=== PATIENT | female | born 1985 | race African-American/Black ===

== ENCOUNTER 2016-09-16 08:00 | Inpatient (IN) | payer MEDICAID, OTHER ==
[~2016-09-16] VITALS: Ht 167.6 cm; Wt 86.0 kg
[2016-09-16] VITALS (9 sets, daily range): BP systolic 124–164; BP diastolic 75–95; PULSE 78–91; RESP 16–18; TEMP 97.9–98.4; O2SAT 98–100
[~2016-09-16 08:00] MED LIST: ASPI325T PO; LEVE500 PO
--- NOTE | 2016-09-16 08:32 | PD ---
HPI Chief Complaint: Seizure Time Seen by Provider: 08:32 Travel History International Travel<30 days: No Contact w/Intl Traveler<30days: No Traveled to known affect area: No History of Present Illness HPI 31-year-old female came to the emergency room with history of seizure. Patient has history of seizure disorder but she had not had her seizure for past one year and has not taken her medication in past 1 year. Her mother is here with her who brought her from home. This morning when she was asleep her boyfriend found her shaking next to him and initially he thought she was dreaming but then realized that she was not responding. Eventually the seizure stopped. He called her mother to let her know about this. No history of tongue bite or urinary incontinence. Currently she is awake and answering questions appropriately but with a stutter. Patient has a heavy stammer which is her baseline after seizures. She is complaining of left upper extremity and lower extremity weakness which usually she has in the past with her seizures. Initially patient was hypertensive in triage but when I went to see her her blood pressure was back to normal. No other symptoms otherwise. Patient is currently not on any medications. [facility] Past Medical History Narrative Medical List of her home medications reviewed from the nursing note. Hx Anticoagulant Therapy: Yes (ASPIRIN) Asthma: Yes (CHILDHOOD) Blood Disorders: No Cancer: No Cardiovascular Problems: Yes Chemotherapy: No Cerebrovascular Accident: Yes (HX OF POSSIBLE CVA/TIA ) Diabetes: No Endocrine: No Gastrointestinal Disorders: No Genitourinary: No Hepatitis: No Hiatal Hernia: No Immune Disorder: No Implanted Vascular Access Dvce: No Musculoskeletal: No Neurologic: Yes (MINISTROKES , SEIZURES, WEAKNESS LEFT SIDED, MEMORY LOSS, MIGRAINES) Psychiatric: No Reproductive: No Respiratory: No Immunizations Current: Yes Migraines: Yes Radiation Therapy: No Seizures: Yes Thyroid Disease: No Tetanus Vaccination: < 5 Years Influenza Vaccination: Yes ?: Not LMP: 08/23/16 : 4 Para: 3 Miscarriage: 1 : 1 Tubal Ligation: Yes Past Surgical History Abdominal Surgery: Yes (APPENDECTOMY) AICD: No Appendectomy: Yes Arteriovenous Shunt: No Body Medical Devices: NONE Cardiac Surgery: No Ear Surgery: No Endocrine Surgery: No Eye Surgery: No Genitourinary Surgery: No Gynecologic Surgery: No Insulin Pump: No Joint Replacement: No Oral Surgery: No Pacemaker: No Thoracic Surgery: No Other Surgery: Yes Social History Alcohol Use: No Tobacco Use: No Substance Use: No Allergies-Medications (Allergen,Severity, Reaction): Coded Allergies: Sulfa (Verified Allergy, Severe, HIVES, 09/16/16) *MDRO Multi-Drug Resistant Organism (Verified Adverse Reaction, Unknown, MRSA PCR Screen negative 10/20/14 and 10/29/14. Cleared, 09/16/16) MRSA MRSA PCR Screen negative 10/20/14 and 10/29/14. Cleared per Infection Control Comments List of her allergies reviewed from the nursing note. Reported Meds & Prescriptions Reported Meds & Active Scripts Active Narrative Medication List of her home medications reviewed from the nursing note. Review of Systems Except as stated in HPI: all other systems reviewed are Neg Physical Exam Narrative GENERAL: Awake, alert, obese, no obvious distress SKIN: Focused skin assessment warm/dry. HEAD: Atraumatic. Normocephalic. EYES: Pupils equal and round. No scleral icterus. No injection or drainage. ENT: No nasal bleeding or discharge. Mucous membranes pink and moist. NECK: Trachea midline. No JVD. CARDIOVASCULAR: Regular rate and rhythm. No murmur appreciated. RESPIRATORY: No accessory muscle use. Clear to auscultation. Breath sounds equal bilaterally. GASTROINTESTINAL: Abdomen soft, non-tender, nondistended. Hepatic and splenic margins not palpable. MUSCULOSKELETAL: No obvious deformities. No clubbing. No cyanosis. No edema. NEUROLOGICAL: Awake and alert. No obvious cranial nerve deficits. Motor strength in left upper and lower extremities 4 out of 5 and right lower and upper extremities 5 out of 5. Sensation is slightly dull on the left upper and lower extremity. Normal speech. PSYCHIATRIC: Appropriate mood and affect; insight and judgment normal. Data Data Last Documented VS Vital Signs Date Time Temp Pulse Resp B/P Pulse Ox O2 Delivery O2 Flow Rate FiO2 09/16/16 10:20 84 16 127/83 98 Room Air 09/16/16 08:12 97.9 Orders Complete Blood Count With Diff (09/16/16 08:37) Basic Metabolic Panel (Bmp) (09/16/16 08:37) Blood Glucose (09/16/16 08:37) Ecg Monitoring (09/16/16 08:37) Iv Access Insert/Monitor (09/16/16 08:37) Oximetry (09/16/16 08:37) Sodium Chloride 0.9% Flush (Ns Flush) (09/16/16 08:45) Levetiracetam Inj (Keppra Inj) (09/16/16 08:45) Magnesium (Mg) (09/16/16 08:41) Eeg Study (09/16/16 ) Admit Order (Ed Use Only) (09/16/16 11:50) Mri Brain W/O Contrast (09/16/16 ) Labs Laboratory Tests Test 09/16/16 08:53 White Blood Count 5.6 TH/MM3 Red Blood Count 4.49 MIL/MM3 Hemoglobin 11.9 GM/DL Hematocrit 35.7 % Mean Corpuscular Volume 79.6 FL Mean Corpuscular Hemoglobin 26.5 PG Mean Corpuscular Hemoglobin 33.4 % Concent Red Cell Distribution Width 16.2 % Platelet Count 344 TH/MM3 Mean Platelet Volume 7.7 FL Neutrophils (%) (Auto) 49.7 % Lymphocytes (%) (Auto) 39.9 % Monocytes (%) (Auto) 7.6 % Eosinophils (%) (Auto) 2.0 % Basophils (%) (Auto) 0.8 % Neutrophils # (Auto) 2.8 TH/MM3 Lymphocytes # (Auto) 2.2 TH/MM3 Monocytes # (Auto) 0.4 TH/MM3 Eosinophils # (Auto) 0.1 TH/MM3 Basophils # (Auto) 0.0 TH/MM3 CBC Comment DIFF FINAL Differential Comment Sodium Level 140 MEQ/L Potassium Level 3.9 MEQ/L Chloride Level 106 MEQ/L Carbon Dioxide Level 27.3 MEQ/L Anion Gap 7 MEQ/L Blood Urea Nitrogen 6 MG/DL Creatinine 0.77 MG/DL Estimat Glomerular Filtration 107 ML/MIN Rate Random Glucose 86 MG/DL Calcium Level 8.8 MG/DL Magnesium Level 2.3 MG/DL Total Creatine Kinase 335 U/L Creatine Kinase MB 1.2 NG/ML Creatine Kinase MB % 0.4 % Human Chorionic Gonadotropin, LESS THAN 1 Quant MIU/ML MDM Medical Decision Making Medical Screen Exam Complete: Yes Emergency Medical Condition: Yes Medical Record Reviewed: Yes Differential Diagnosis Seizure disorder, noncompliance with medications Narrative Course 10:31 AM patient was given IV 1 g of Keppra bolus. Blood test results came back and within normal limits. She walked to the bathroom and came back and there is no neurologic deficit at this point. Her mother wanted the patient to get a CT scan of her head and I explained to her that her last MRI which was done in April 2015 was within normal limit. She needs to get back on her medications and see the neurologist will need to get a repeat EEG. I will give her prescription for her old dose Keppra. I did put a call out for her neurologist Dr. Okeefe and will discuss and let him know about this patient. I have asked her not to drive or swim until she has seen the neurologist and get a clearance from him. 11 AM I discussed the case with Dr. Okeefe who called back. He agreed with the management so far. He would like to see the patient in his office next week. I have let the patient and her mother know about this. 11:40 AM I was told just now by the nurse that patient is unresponsive. I went and saw her. Her eyes were closed and when I called her name she opened her eyes and looked at me and close them again. Vital signs were completely stable. Her mother is upset and thinks she is having another seizure. It did not appear as a seizure to me but I will admit her at this point and order an EEG and an MRI. Awaiting for the residents to call back. Procedures EKG Prior to Arrival: No Diagnosis Primary Impression: Seizure Additional Impressions: Seizure disorder Non-compliant behavior Noncompliance Admitting Information Admitting Physician Requests: Observation Referrals: Darvin Okeefe PhD 1 week Additional Instructions: Please return to the ER if the condition worsens or any other new concerns. You must take the medication as per the prescription direction without missing any dose. Do not drive, swim or operate heavy machinery until you have got a clearance from your neurologist. Please follow-up with the neurologist as soon as possible. Med/Other Pt SpecificInfo: Prescription(s) given Scripts Levetiracetam (Keppra)500 Mg Klr525 Mg PO BID #60 TAB Ref 0 Prov:Paul Todd MD R1 09/18/16 Disposition: 01 DISCHARGE HOME Condition: Stable Amanda Deras MD Sep 16, 2016 08:32
[2016-09-16] MEDS ORDERED: SODIUM CHLORIDE 0.9% FLUSH 10 ML FLUSH IVF PRN (08:45)
[2016-09-16] MEDS ORDERED: levETIRAcetam INJ 1,000 MG in SODIUM CHLORIDE 0.9% INJ 100 ML IV ONE (08:45)
[2016-09-16 09:02] LABS: AUTOMATED NEUTROPHIL # 2.8 TH/MM3 (1.8-7.7); BASOPHIL % 0.8 % (0.0-2.0); EOSINOPHIL # 0.1 TH/MM3 (0-0.4); HEMATOCRIT 35.7 % (35.0-46.0); HEMO FLAGS DIFF FINAL; LYMPH % 39.9 % (9.0-44.0); LYMPHOCYTE # 2.2 TH/MM3 (1.0-4.8); MEAN CELL VOLUME 79.6 FL (80.0-100.0); MEAN CORPUSCULAR HEMOGLOBIN 26.5 PG (27.0-34.0); MEAN CORPUSCULAR HGB CONC 33.4 % (32.0-36.0); MONO % 7.6 % (0.0-8.0); NEUT % 49.7 % (16.0-70.0); PLATELET COUNT 344 TH/MM3 (150-450); RED BLOOD COUNT 4.49 MIL/MM3 (4.00-5.30); RED CELL DISTRIBUTION WIDTH 16.2 % (11.6-17.2); WHITE BLOOD COUNT 5.6 TH/MM3 (4.0-11.0)
[2016-09-16 09:17] LABS: BICARBONATE 27.3 MEQ/L (21.0-32.0); POTASSIUM 3.9 MEQ/L (3.5-5.1)
[2016-09-16] MEDS ORDERED: LEVE500 PO (10:34)
[2016-09-16] MEDS ORDERED: NALOXONE HCL 0.4 MG/ML AMP IV PRN (12:15)
[2016-09-16] MEDS ORDERED: SODIUM CHLORIDE 0.9% FLUSH 10 ML FLUSH IV FLUSH PRN (12:15)
[2016-09-16] MEDS ORDERED: ACETAMINOPHEN 325 MG TAB PO PRN (12:15)
[2016-09-16] MEDS ORDERED: ONDANSETRON HCL 4 MG/2 ML VIAL IVP PRN (12:15)
--- NOTE | 2016-09-16 12:43 | HHI.HP ---
[facility] Service Family Medicine Primary Care Physician No Primary Care Physician Admission Diagnosis seizures Diagnoses: International Travel<30 Days: No Contact w/Intl Traveler<30days: No Known Affected Area: No History of Present Illness Patient is a 31yo male with PMH significant for seizures who presented here today for seizures. History was obtained from both patient and her mother. At 6:30 this morning, her boyfriend was awakened to the patient shaking and being unresponsive. Boyfriend then called the mother who brought her to the ED. History of seizures for the last 2 years that began during her second . Her seizures are typically absence seizures that are preceded by chest pain and result in left-sided weakness. She reports having similar chest pain last night before the onset of her generalized seizure today. Patient has not had a generalized seizure before. Last seizure was one year ago at which time she was taking Keppra. She had discontinued the medication for the last year due to insurance issues. Denies any urinary/fecal incontinence. Mother reports that seizure lasted for a few minutes but was unable to specify the amount of time. Since the initial generalized seizure, patient has been stuttering which is not her baseline. Prior to the visit today, patient has been complaining of generalized fatigue and decreased appetite over the last 3 weeks. Denies any sick contacts or any other symptoms. Prior neurologist was Dr. Okeefe. (Ignacia Sotomayor MD R2) Review of Systems ROS Limitations: Other (postictal) Constitutional: COMPLAINS OF: Change in appetite, DENIES: Fever, Chills Endocrine: DENIES: Abnorml menstrual pattern Eyes: DENIES: Eye pain Ears, nose, mouth, throat: DENIES: Ear Pain, Running Nose Respiratory: DENIES: Cough, Shortness of breath Cardiovascular: DENIES: Chest pain Gastrointestinal: DENIES: Abdominal pain, Constipation, Diarrhea, Nausea, Vomiting Genitourinary: DENIES: Hematuria, Dysuria Musculoskeletal: DENIES: Joint pain Integumentary: DENIES: Rash Neurologic: COMPLAINS OF: Seizures (Ignacia Sotomayor MD R2) Past Family Social History Past Medical History Seizures Past Surgical History Tubal ligation Appendectomy Reported Medications None (Ignacia Sotomayor MD R2) Allergies: Coded Allergies: Sulfa (Verified Allergy, Severe, HIVES, 09/16/16) *MDRO Multi-Drug Resistant Organism (Verified Adverse Reaction, Unknown, MRSA PCR Screen negative 10/20/14 and 10/29/14. Cleared, 09/16/16) MRSA MRSA PCR Screen negative 10/20/14 and 10/29/14. Cleared per Infection Control Family History Mother and father reportedly healthy Social History Lives with boyfriend, uncle, 3 children Tobacco: Denies Alcohol: Socially Illicits: Denies (Ignacia Sotomayor MD R2) Physical Exam Vital Signs Vital Signs Date Time Temp Pulse Resp B/P Pulse Ox O2 Delivery O2 Flow Rate FiO2 09/16/16 10:20 84 16 127/83 98 Room Air 09/16/16 08:30 18 Room Air 09/16/16 08:15 75 16 99 Room Air 09/16/16 08:12 97.9 82 16 164/95 98 Room Air Physical Exam GENERAL: This is a well-nourished, well-developed patient, in no apparent distress. Laying in bed. SKIN: No rashes, ecchymoses or lesions. Cool and dry. HEAD: Atraumatic. Normocephalic. EYES: Pupils equal round and reactive. Extraocular motions intact. No scleral icterus. No injection or drainage. ENT: Nose without bleeding, purulent drainage. No tongue lacerations. Throat without erythema, tonsillar hypertrophy or exudate. Uvula midline. Airway patent. NECK: No lymphadenopathy. Supple, nontender, no meningeal signs. CARDIOVASCULAR: Regular rate and rhythm without murmurs, gallops, or rubs. RESPIRATORY: Clear to auscultation. Breath sounds equal bilaterally. No wheezes , rales, or rhonchi. GASTROINTESTINAL: Abdomen soft, non-tender, nondistended. No hepato-splenomegaly , or palpable masses. No guarding. MUSCULOSKELETAL: Extremities without clubbing, cyanosis, or edema. No calf tenderness. NEUROLOGICAL: Awake and alert. Initially patient was nonverbal and only look at me and her mother but then became verbal answering questions. Speech was stuttered. Reports decreased sensation to touch on left upper and lower face. 4/5 upper and lower extremity. Patellar reflexes absent bilaterally. Pronator drift unremarkable. Laboratory Laboratory Tests Test 09/16/16 08:53 White Blood Count 5.6 Red Blood Count 4.49 Hemoglobin 11.9 Hematocrit 35.7 Mean Corpuscular Volume 79.6 Mean Corpuscular Hemoglobin 26.5 Mean Corpuscular Hemoglobin 33.4 Concent Red Cell Distribution Width 16.2 Platelet Count 344 Mean Platelet Volume 7.7 Neutrophils (%) (Auto) 49.7 Lymphocytes (%) (Auto) 39.9 Monocytes (%) (Auto) 7.6 Eosinophils (%) (Auto) 2.0 Basophils (%) (Auto) 0.8 Neutrophils # (Auto) 2.8 Lymphocytes # (Auto) 2.2 Monocytes # (Auto) 0.4 Eosinophils # (Auto) 0.1 Basophils # (Auto) 0.0 CBC Comment DIFF FINAL Differential Comment Sodium Level 140 Potassium Level 3.9 Chloride Level 106 Carbon Dioxide Level 27.3 Anion Gap 7 Blood Urea Nitrogen 6 Creatinine 0.77 Estimat Glomerular Filtration 107 Rate Random Glucose 86 Calcium Level 8.8 Magnesium Level 2.3 (Ignacia Sotomayor MD R2) Result Diagram: 09/16/16 0853 09/16/16 0853 Assessment and Plan Assessment and Plan 31-year-old female with a history significant for seizures. Admitted for seizure activity. Code Status Full Discussed Condition With Dr. Beltrán (Ignacia Sotomayor MD R2) Attending Attestation Patient seen and examined. Case reviewed and discussed with the resident team. Agree with plan of care as discussed with me and documented in the resident note. saw pt on admission in ED (Suzie Beltrán MD) Problem List: (1) Seizure disorder Status: Acute Plan: Reported generalized seizure activity on the morning of admission. History of prior seizures but has not been taking medications for the last year due to insurance issues. Patient appears to be post ictal. Continues to have very mild left-sided weakness. -CPK, UDS, EKG ordered -EEG: normal awake and drowsy. No evidence for a focal or diffuse abnormality -MRI Negative -neuro checks and seizure precautions -PT consult -Urine drug screen ordered Consulted Neuro: appreciate recommendations Medications: * IV Keppra x1 in ED * Keppra 1000mg PO BID (reported home dose of 1500mg BID) * Ativan for seizure (2) Left-sided weakness Status: Acute Plan: Likely related to seizure activity -Please see plan above (3) Nutrition, metabolism, and development symptoms Status: Acute Plan: Diet: Clears until mental status improves Fluids: D5 half NS at 75 Electrolytes: Unremarkable DVT prophylaxis: SCDs GI prophylaxis: Not indicated (Ignacia Sotomayor MD R2) Ignacia Sotomayor MD R2 Sep 16, 2016 12:43 Suzie Beltrán MD Sep 17, 2016 14:01
[2016-09-16] MEDS: DEXT 5%-NACL 0.45% 1000 ML INJ 1,000 ML IV SCH (13:00)
--- NOTE | 2016-09-16 14:31 | MG ---
cc: LYNDA COLES Lab No: [id number] Date: 09/16/2016 Age: 31 Sex: F A 31-year-old woman, shaking, not responding, left upper and lower extremities, mini strokes, seizure, Keppra. DESCRIPTION The recording shows symmetric 9 Hz, 60 microvolt posterior rhythm. She falls asleep and reaches stage II sleep which is synchronous and symmetric. Photic stimulation was performed without significant posterior driving. Hyperventilation was not performed. No epileptiform or seizure activity is noted. There were no hemisphere asymmetries. IMPRESSION Normal awake and drowsy EEG. No evidence for a focal or diffuse abnormality. MD BEN Otero/DIA /2:06 PM /2:21 PM
--- NOTE | 2016-09-16 14:58 | RADRPT ---
EXAM DATE/TIME: 09/16/2016 13:10 [facility] COMPARISON: MRI BRAIN W/O CONTRAST, September 17, 2014, 15:21. INDICATIONS : Seizures. MEDICAL HISTORY : Seizures. SURGICAL HISTORY : Appendectomy. Tonsillectomy. ENCOUNTER: Initial ACUITY: 1 day PAIN SCORE: 0/10 LOCATION: cranial TECHNIQUE: Multiplanar, multisequence MRI of the brain was performed without contrast. FINDINGS: CEREBRUM: The ventricles are normal for age. No evidence of midline shift, mass lesion, hemorrhage or acute in farction. No extraaxial fluid collections are seen. The pituitary gland and suprasellar cistern are normal in configuration. WHITE MATTER: No significant signal abnormalities are seen in the white matter. POSTERIOR FOSSA: The cerebellum and brainstem are intact. The 4th ventricle is midline. The cerebellopontine angle is unremarkable. The cerebellar tonsils are normal in position. DIFFUSION IMAGING: No focal areas of restricted diffusion are seen. No evidence of acute infarction. EXTRACRANIAL: The visualized portions of the orbits and paranasal sinuses are unremarkable. CONCLUSION: Negative for acute process.. Sam Glynn MD FACR on September 16, 2016 at 14:54 Board Certified Radiologist. This report was verified electronically.
[2016-09-16] MEDS ORDERED: LORazepam 2 MG/ML VIAL IV PRN (15:00)
[2016-09-16] MEDS ORDERED: ENALAPRILAT 1.25 MG/ML VIAL IV PRN (15:15)
[2016-09-16] MEDS ORDERED: FOSPHENYTOIN SODIUM 100 MG PE/2 ML VIAL IV ONE (15:45)
[2016-09-16] MEDS ORDERED: LORazepam 2 MG/ML VIAL IV PUSH ONE (15:45)
[2016-09-16 15:51] LABS: BLOOD GAS BASE EXCESS -0.8 mmol/L (-2-2); BLOOD GAS CARBOXYHEMOGLOBIN 0.8 % (0-4); BLOOD GAS HCO3 23 mmol/L (22-26); BLOOD GAS METHEMOGLOBIN 0.4 % (0-2); BLOOD GAS O2 HGB SATURATION 97 % (90-100); BLOOD GAS PCO2 36 mmHg (38-42); BLOOD GAS PO2 96 mmHG (61-120); BLOOD GAS TOTAL HGB 11.7 G/DL (12.0-16.0); TEMP CORR TO 98.6
[2016-09-16 15:52] LABS: CRITICAL VALUE NO; DRAW SITE RT RADIAL; NUMBER OF ARTERIAL PUNCTURES 1; OXYGEN DEVICE ROOM AIR; STAT YES; ULNAR PULSE PRESENT
--- NOTE | 2016-09-16 16:18 | HHI.FPPN ---
Addendum to progress note ADDENDUM Reason for addendum: Additonal documentation Additional information SUBJECTIVE Received page regarding unresponsiveness when patient arrived to [facility]. Mother reports that after my initial evaluation, patient became somnolent during the time of her EEG and MRI. There was reported eye twitching. When I arrived at bedside, patient was laying in bed with eyes closed but with visible eye movement back and forth. OBJECTIVE VS reassuring. O2 Sat 99% General: Laying in bed with eyes closed. Eyes movement back and forth. Non responsive to sternal rub Cardiac: Regular rate and rhythm without obvious murmurs, gallops, or rubs. Neuro: 1+ patellar reflexes bilaterally that was not present on initial exam A/P 31yo female with history of seizure who was admitted for generalized seizure. Appears to have a recurrent episode that has been persistent since initial evaluation. Received 1G of Keppra in ED prior to recent onset of seizure activity. EEG and MRI obtained today were normal. -Spoke with Dr. Covington, Neuro, who recommended stat repeat EEG, Fosphenytoin 15mg/kg, and Ativan 0.5mg x1. If patient is still having seizures, will contact Dr. Covington again. -ABG obtained and was unremarkable with pH 7.423, pCO2 35.8, pO2 95.7 on room air -Bedside glucose WNL -If symptoms continue, may require intubation -Consulted Cheese Maker, Dr. Armstrong aware -[place] [facility] [place]NPO sdw Dr. Beltrán ADDENDUM Re-evaluated patient at 1800. Patient is more awake and able to follow commands by moving hands and feet on command. VS reassuring and in sinus rhythm during episodes. Etiology unclear but may be due to pseudoseizures -Did require Ativan 2mg due to reoccurrence of seizure like activity. -B-hcg pending -Notified Dr. Covington of clinical status Ignacia Sotomayor MD R2 Sep 16, 2016 16:18
[2016-09-16] MEDS ORDERED: FOSPHENYTOIN INJ 1,000 MGPE in SODIUM CHLORIDE 0.9% INJ 50 ML IV ONE (17:00)
[2016-09-16] MEDS ORDERED: CHLORHEXIDINE GLUCONATE 2 % 1 PACK (2 CLOTHS)(extra cloths) TOPICAL PRN (17:00)
[2016-09-16 18:24] LABS: BETA HCG QUANT LESS THAN 1 MIU/ML (0-5)
[2016-09-16 18:42] LABS: CKMB 1.2 NG/ML (0.5-3.6)
--- NOTE | 2016-09-16 19:24 | PD.CONS ---
[facility] Service Critical Care Medicine Consult Requested By Family Medicine Service Reason for Consult altered mental status Primary Care Physician No Primary Care Physician History of Present Illness I was called by the family consumer science fcs teacher to evaluate a patient after rapid response was called for altered mental status. Unfortunately, the patient is altered and unable to provide a history. Per the report given to me by the family practice resident, combined with brief chart review, this is a 31-year- old female with a past medical history of seizures, although she apparently does not take any home medications. She presented to the emergency department here yesterday after experiencing shaking and being unresponsive. She does have a history of seizures that began proximally 2 years ago during her second . 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 She has never had a generalized tonic clonic seizure. Her last seizure was greater than 1 year ago. At that time she is taking Keppra. She since discontinued this due to insurance. She was admitted the hospital worked up for seizures, including an EEG. Today while they were connecting the EEG, she had another generalized tonic-clonic appearing seizure with shaking. She did not have loss of bowel or bladder control. During my evaluation as she was rolling into the ICU, she appeared to be protecting her airway. Critical care medicine is consulted to evaluate and manage her altered mental status and evaluate her airway to ensure that it is protected. Review of Systems ROS Limitations: Clinical Condition, Altered Mental Status Past Family Social History Allergies: Coded Allergies: Sulfa (Verified Allergy, Severe, HIVES, 09/16/16) *MDRO Multi-Drug Resistant Organism (Verified Adverse Reaction, Unknown, MRSA PCR Screen negative 10/20/14 and 10/29/14. Cleared, 09/16/16) MRSA MRSA PCR Screen negative 10/20/14 and 10/29/14. Cleared per Infection Control Past Medical History Patient is unable to provide a past medical history due to her altered mental status. Per chart review, her past medical history is positive for seizures. Past Surgical History Due to her altered mental status, the patient is able to provide a past surgical history. Per chart review, past surgical history positive for tubal ligation and appendectomy. Reported Medications The patient's altered mental status prevents her from giving a full home med list. Per chart review, the patient takes no medications at home Active Ordered Medications See MAR Family History Patient is unable to provide a family history given her altered mental status. Per chart review, her parents are reportedly healthy. Social History The patient is altered and unable to provide a social history. Per chart review , she lives with her boyfriend, uncle, 3 children. She does not smoke, drinks socially. Denies drugs of abuse. Physical Exam Vital Signs Vital Signs Date Time Temp Pulse Resp B/P Pulse Ox O2 Delivery O2 Flow Rate FiO2 09/16/16 18:00 88 09/16/16 15:37 98.4 78 18 126/91 99 09/16/16 14:00 78 16 136/83 100 Room Air 09/16/16 10:20 84 16 127/83 98 Room Air 09/16/16 08:30 18 Room Air 09/16/16 08:15 75 16 99 Room Air 09/16/16 08:12 97.9 82 16 164/95 98 Room Air Physical Exam When I evaluated the patient, she was somnolent but arousable. RASS -2. She follows commands. She quickly falls back asleep. She has a good cough and gag. She has clear lungs. Regular rate and rhythm without appreciable murmurs. No peripheral edema. No shaking motions that I have seen on my exam. Laboratory Laboratory Tests Test 09/16/16 09/16/16 08:53 15:47 White Blood Count 5.6 Red Blood Count 4.49 Hemoglobin 11.9 Hematocrit 35.7 Mean Corpuscular Volume 79.6 Mean Corpuscular Hemoglobin 26.5 Mean Corpuscular Hemoglobin 33.4 Concent Red Cell Distribution Width 16.2 Platelet Count 344 Mean Platelet Volume 7.7 Neutrophils (%) (Auto) 49.7 Lymphocytes (%) (Auto) 39.9 Monocytes (%) (Auto) 7.6 Eosinophils (%) (Auto) 2.0 Basophils (%) (Auto) 0.8 Neutrophils # (Auto) 2.8 Lymphocytes # (Auto) 2.2 Monocytes # (Auto) 0.4 Eosinophils # (Auto) 0.1 Basophils # (Auto) 0.0 CBC Comment DIFF FINAL Differential Comment Sodium Level 140 Potassium Level 3.9 Chloride Level 106 Carbon Dioxide Level 27.3 Anion Gap 7 Blood Urea Nitrogen 6 Creatinine 0.77 Estimat Glomerular Filtration 107 Rate Random Glucose 86 Calcium Level 8.8 Magnesium Level 2.3 Total Creatine Kinase 335 Creatine Kinase MB 1.2 Creatine Kinase MB % 0.4 Human Chorionic Gonadotropin, LESS THAN 1 Quant Blood Gas Puncture Site RT RADIAL Blood Gas Patient Temperature 98.6 Blood Gas HCO3 23 Blood Gas Base Excess -0.8 Blood Gas Oxygen Saturation 97 Arterial Blood pH 7.42 Arterial Blood Partial 36 Pressure CO2 Arterial Blood Partial 96 Pressure O2 Arterial Blood Oxygen Content 16.0 Arterial Blood 0.8 Carboxyhemoglobin Arterial Blood Methemoglobin 0.4 Blood Gas Hemoglobin 11.7 Oxygen Delivery Device ROOM AIR Result Diagram: 09/16/16 0853 09/16/16 0853 Imaging Last Impressions Brain MRI 09/16/16 0000 Signed Impressions: Service Date/Time: Friday, September 16, 2016 13:10 - CONCLUSION: Negative for acute process.. Sam Glynn MD FACR Assessment and Plan Assessment and Plan Assessment: This is a 31-year-old female with history of reported seizures who presents after generalized shaking movements and concern for seizure. I also discussed her care with the sterile preparation technician, and preliminarily there does not appear to be any seizure activity associated with the shaking episodes. I think pseudoseizures needs to be highly in the differential diagnosis. For now, she appears to be controlling her airway. I agree with monitoring her in ICU setting overnight. We will continue to monitor her airway and for any signs of worsening seizure. Active Problems: history of seizures seizure like activity metabolic encephalopathy Recommendations: -- avoid long-acting sedating medications unless specifically targeted to treat seizures -- anti-epileptics per neurology -- npo until neuro status improves -- ativan for seizure like activity -- will closely monitor her neuro status Disposition: If she remains stable from a neurologic standpoint, I think it's safe for her to leave the ICU tomorrow. If she continues to improve, critical care medicine will sign off in the morning. Code Status Full Code Discussed Condition With Family Medicine team Kieran Armstrong MD Sep 16, 2016 19:24
[2016-09-16] MEDS: SODIUM CHLORIDE 0.9% FLUSH 10 ML FLUSH IV FLUSH SCH (20:01)
[2016-09-16] MEDS ORDERED: levETIRAcetam 500 MG TAB PO SCH (21:00)
[2016-09-16 21:40] LABS: CREATINE KINASE 230 U/L (26-192); FREE T4 0.85 NG/DL (0.76-1.46)
[2016-09-16 21:53] LABS: CKMB 0.6 NG/ML (0.5-3.6)
--- NOTE | 2016-09-16 22:10 | MB ---
cc: LYNDA COLES DATE OF CONSULTATION 09/16/16 A 31-year-old right-handed girl without significant past medical history except she was having seizures, maybe staring off when she was younger and then about two years ago seemed to have slurred speech. She had started was put on Keppra, did fine and then last episode was about a year ago and then maybe six months ago she stopped her Keppra due to insurance or job change and then this morning I was told by her uncle that she had some tremors of both of her hands and could not speak. She presented to the emergency room after her kids went off to school. Seen in the ER and noted in the ER notes when she was asleep her boyfriend found her shaking next to him. Initially thought she was dreaming and then not responding, eventually the seizure stopped. There was a heavy stammer, which was her baseline according to the emergency room. Complaining of left upper extremity and lower extremity weakness which she usually has with her seizures, initially hypertensive and blood pressure back to normal. She was not on any medications, usually takes Keppra 1500 b.i.d. but not currently taking it. ALLERGIES SULFA MRSA She was given a gram Keppra in bolus. Blood tests were negative. She walked to the bathroom and came back. No neurological deficit. Then the patient became unresponsive. Her eyes were closed. When they called her name, she opened her eyes, closed them again. She was subsequently admitted to the hospital. She has had several episodes here, some eye twitching. She was given some Ativan in the emergency room. She was given a load of Dilantin, recurrent episodes. She had visible eye movement back and forth. She had two EEGs done today. The first was normal. The second one was also normal. The second one had some head shaking and right arm shaking and these showed normal EEG activity during these episodes. There is a note from Dr. Okeefe from July 2014. She was two months at that time. She had some stuttering of her speech. It was thought that she had some anxiety and she had more stuttering and tingling in the left hand and the left arm, had a headache. Left group was 4/5, approximately left lower extremity 4/5. Doctor saw her and he suspect this might be psychogenic component. He considered a psychiatric evaluation. MRI of the brain, MRA was normal, MR venogram was normal. She had an EEG done in September of 2014 that was normal. She had another EEG done on September 04, 2014 thought to have some phase reversing done by Dr. Thomson read by Dr. Thomson. REVIEW OF SYSTEMS According to her uncle, no history of hypertension, diabetes, hypercholesterolemia, MA, CABG, cardiac arrhythmia, stent angioplasty, atrial fibrillation, Coumadin, renal, hepatic or pulmonary disease, thyroid disease lupus, ulcer, cancer or stroke. SOCIAL HISTORY Not a smoker or a drinker, lives with her uncle, has three children, works at [employer]. FAMILY HISTORY Negative for cancer seizure, stroke. MEDICATIONS Current meds. She got the above medications. Today she got 2.5 mg of Ativan, 2 mg right before I came. She is sleeping now. She was also put on an aspirin here. She got a Percocet in addition. PHYSICAL EXAMINATION VITAL SIGNS: Afebrile, 78, 18 126/91. NECK: There were no carotid bruits. HEART: Regular rhythm. I did not detect a murmur. She is mildly obese. Pupils are equal, disks are sharp. She awakens. She does count fingers for me. She sticks her tongue out for me and says hello. She is very sleepy after the Ativan. She had normal strength in upper and lower extremities bilaterally. Toes are downgoing bilaterally. DTRs are 1+ symmetric. Pinprick was intact. She follows commands well and then falls back to sleep. LABORATORY DATA CBC is normal. She had a hypercoag screen done back in 2014 that was normal. She has had a UTI here in the past but not checked currently. Basic metabolic profile - magnesium normal. CPK 335, troponin negative in the past. LDL cholesterol normal in the past. TSH normal in the past. HCT negative, lupus anticoagulant not detected. Factor Five was negative. Protein TOOLS AND [employer]S ATTENDANT normal. She had an MRI of her brain done today was normal without contrast. EEG is normal as noted. IMAGING STUDIES Chest x-ray normal. Review of the MRI film. I would say looking at the films on the flare on the left one cut on the left sylvian fissure there might be a little bit of hyperintensity on both sides of that, although only on one slice not on the other slice. It is probably a normal image. This was similarly seen on the scan in 2015 so it is normal for her. that scan was done in 2015 with contrast and was normal. IMPRESSION I think likely pseudoseizures certainly on the basis of this EEG. I would hold off on giving her any sedatives at this point. We could keep her on the Keppra for now. I think she will probably sleep well tonight after the Ativan. I will be following up with you in the hospital. We will just check a few other labs on her that have not been checked here. MD BEN Otero/ /6:49 PM /9:39 PM
--- NOTE | 2016-09-16 22:47 | MG ---
cc: LYNDA COLES M.D. Lab No: [id number] Date: 09/16/16 Age: 31 Sex: F Race: This is a repeat EEG. HISTORY A 31-year-old woman. Appears unresponsive at the start of the recording. Given some Ativan one hour before the recording. Was found shaking, unresponsive. MEDICATIONS Dilantin, Ativan, Keppra. DESCRIPTION The recording shows some diffuse alpha and beta rhythms. She has at epoch 86 some left arm movement, some shaking of her head, turning head to right. Moves just correlate with movement artifact and no epileptiform or seizure activity is noted with that. She then appeared to fall asleep and go into stage 2 sleep and in fact does have stage 2 sleep quite a bit towards the end of the recording including during photic stimulation. IMPRESSION A normal awake and stage 2 sleep EEG including during an episode of arm and head shaking. No evidence for a focal or diffuse abnormality. She also had some eye twitching episodes which did not correlate with any seizure activity. These episodes appear to be likely pseudoseizures. MD BEN Otero/BJAnam /6:28 PM /10:35 PM
[2016-09-17] VITALS (17 sets, daily range): BP systolic 104–147; BP diastolic 57–81; PULSE 70–94; RESP 14–20; TEMP 97.5–98.6; O2SAT 98–99
[2016-09-17] MEDS: CHLORHEXIDINE GLUCONATE 2 % 1 PACK (2 CLOTHS)(taper/protocol) TOPICAL SCH (04:00)
[2016-09-17] MEDS: DEXT 5%-NACL 0.45% 1000 ML INJ 1,000 ML IV SCH ×3 (04:26→20:28)
[2016-09-17 05:13] LABS: AUTOMATED NEUTROPHIL # 2.7 TH/MM3 (1.8-7.7); BASOPHIL # 0.1 TH/MM3 (0-0.2); EOSINOPHIL # 0.1 TH/MM3 (0-0.4); EOSINOPHIL % 2.2 % (0.0-4.0); HEMO FLAGS DIFF FINAL; LYMPH % 44.9 % (9.0-44.0); LYMPHOCYTE # 2.9 TH/MM3 (1.0-4.8); MEAN CELL VOLUME 80.8 FL (80.0-100.0); MEAN CORPUSCULAR HEMOGLOBIN 26.6 PG (27.0-34.0); MEAN CORPUSCULAR HGB CONC 32.9 % (32.0-36.0); MONO % 10.8 % (0.0-8.0); NEUT % 41.1 % (16.0-70.0); PLATELET COUNT 290 TH/MM3 (150-450); POTASSIUM 3.9 MEQ/L (3.5-5.1); RED BLOOD COUNT 4.21 MIL/MM3 (4.00-5.30); RED CELL DISTRIBUTION WIDTH 16.1 % (11.6-17.2); WHITE BLOOD COUNT 6.5 TH/MM3 (4.0-11.0)
[2016-09-17 05:33] LABS: CKMB 0.5 NG/ML (0.5-3.6)
--- NOTE | 2016-09-17 07:42 | HHI.CCPN ---
Subjective Remarks/Hospital Course Hospital Course: I was called by the family medicine chair to evaluate a patient after rapid response was called for altered mental status. Unfortunately, the patient is altered and unable to provide a history. Per the report given to me by the family practice resident, combined with brief chart review, this is a 31-year- old female with a past medical history of seizures, although she apparently does not take any home medications. She presented to the emergency department here yesterday after experiencing shaking and being unresponsive. She does have a history of seizures that began proximally 2 years ago during her second . 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 She has never had a generalized tonic clonic seizure. Her last seizure was greater than 1 year ago. At that time she is taking Keppra. She since discontinued this due to insurance. She was admitted the hospital worked up for seizures, including an EEG. Today while they were connecting the EEG, she had another generalized tonic-clonic appearing seizure with shaking. She did not have loss of bowel or bladder control. During my evaluation as she was rolling into the ICU, she appeared to be protecting her airway. Critical care medicine is consulted to evaluate and manage her altered mental status and evaluate her airway to ensure that it is protected. Subjective: 09/17: EEG negative for seizures. per Dr. Covington, likely pseudoseizures, and I agree with his assessment. this morning she had another episode with shaking and tachycardia and eye fluttering and hyperventilating which resolved after deep nailbed pressure instantly. otherwise she has remained hemodynamically stable. Objective Vital Signs Date Time Temp Pulse Resp B/P Pulse Ox O2 Delivery O2 Flow Rate FiO2 09/17/16 06:00 82 09/17/16 04:15 98.3 20 116/78 98 09/16/16 14:00 Room Air Intake and Output 09/16/16 09/16/16 09/17/16 08:00 16:00 00:00 Intake Total 400 ml Balance 400 ml Result Diagram: 09/17/16 0403 09/17/16 0403 Other Results Laboratory Tests Test 09/16/16 15:47 Blood Gas Puncture Site RT RADIAL Blood Gas Patient Temperature 98.6 Blood Gas HCO3 23 mmol/L (22-26) Blood Gas Base Excess -0.8 mmol/L (-2-2) Blood Gas Oxygen Saturation 97 % (90-100) Arterial Blood pH 7.42 (7.380-7.420) Arterial Blood Partial 36 mmHg (38-42) Pressure CO2 Arterial Blood Partial 96 mmHG Pressure O2 (61-120) Arterial Blood Oxygen Content 16.0 Vol % (12.0-20.0) Arterial Blood 0.8 % (0-4) Carboxyhemoglobin Arterial Blood Methemoglobin 0.4 % (0-2) Blood Gas Hemoglobin 11.7 G/DL (12.0-16.0) Oxygen Delivery Device ROOM AIR Imaging Last Impressions Brain MRI 09/16/16 0000 Signed Impressions: Service Date/Time: Friday, September 16, 2016 13:10 - CONCLUSION: Negative for acute process.. Sam Glynn MD FACR Objective Remarks gen: young female, lying in bed, no acute distress. heent: nc. at. perrl. mmm. neck: no jvd. trachea midline. chest: cta. cv: normal rate, regular rhythm. sinus by tele. abd: soft, nt. nd. no guarding. extr: no peripheral edema. distal pulses 2+ neuro: awake, alert, fc. A/P Assessment and Plan Assessment: This is a 31-year-old female with history of reported seizures who presents after generalized shaking movements and concern for seizure, EEG negative and likely pseudoseizures. I think she is safe to be transferred to the floor today. I agree with Dr. covington that we should hold off on all sedatives at this point. continue keppra. 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 Recommendations: -- stop ativan -- continue Keppra -- avoid long-acting sedating meds -- advance diet as tolerated. -- stable for transfer to floor. [facility] will sign off. please re-consult as needed. Kieran Armstrong MD Sep 17, 2016 07:42
[2016-09-17] MEDS: SODIUM CHLORIDE 0.9% FLUSH 10 ML FLUSH IV FLUSH SCH ×2 (09:24→20:28)
--- NOTE | 2016-09-17 09:32 | HHI.HP ---
[facility] Service Family Medicine Primary Care Physician No Primary Care Physician Admission Diagnosis seizures Diagnoses: (1) Seizure disorder Diagnosis: Principal (2) Left-sided weakness Diagnosis: Principal (3) Nutrition, metabolism, and development symptoms Diagnosis: Principal International Travel<30 Days: No Contact w/Intl Traveler<30days: No Known Affected Area: No History of Present Illness Jessica Ahmadi is a 31yo male with PMH significant for seizures who presented to the hospital for seizures. History was obtained from both patient and her mother initially. At 6:30 the morning of admission, her boyfriend was awakened to the patient shaking especially of her arms bilaterally in a prone position and being unresponsive. Boyfriend then called the mother who brought her to the ED. History of seizures for the last 2 years that began during her second . Her seizures are typically absence seizures that are preceded by chest pain and result in left-sided weakness and some stuttering speech after seizures. She reports having similar chest pain before the onset of her generalized seizure today. Patient has not had a generalized seizure before. Last seizure was one year ago at which time she was taking Keppra. She had discontinued the medication for the last year due to insurance issues. Denies any urinary/fecal incontinence. Mother reports that seizure lasted for a few minutes but was unable to specify the amount of time. Since the initial generalized seizure, patient has been stuttering which is not her baseline but she would have time after her prior seizures. Prior to the visit today, patient has been complaining of generalized fatigue and decreased appetite over the last 3 weeks. Denies any sick contacts or any other symptoms. Prior neurologist was Dr. Okeefe. She was in the ED and was not having any tonic clonic activity but started to become generally unresponsive to speech, sternal rub, etc. and had a nearly constant "eye fluttering" where her eyelids were obviously showing eye movements but her eyes were not opening. She had an initial EEG that was normal as well as a second EEG while she was exhibiting seizure-like activity that both did not show seizures. She was given multiple doses of ativan which did not stop any activity but did appear to be sedating. She had an episode of altered breathing and activity this am that quickly stopped with nail rub. It was explained to her parents that she appeared to be having pseudoseizures and that all her labs are very reassuring as well as her other studies. Her mother was very concerned that she could have bilateral carotid blockages but it was explained that this would show up on her MRI and other tests if she had no blood flow to a good portion of her brain. Review of Systems ROS Limitations: Clinical Condition (ROS not able to be obtained by pt by me so relied on Dr Shah's) Other ROS Limitations: Other (postictal) Constitutional: COMPLAINS OF: Change in appetite, DENIES: Fever, Chills Endocrine: DENIES: Abnorml menstrual pattern Eyes: DENIES: Eye pain Ears, nose, mouth, throat: DENIES: Ear Pain, Running Nose Respiratory: DENIES: Cough, Shortness of breath Cardiovascular: DENIES: Chest pain Gastrointestinal: DENIES: Abdominal pain, Constipation, Diarrhea, Nausea, Vomiting Genitourinary: DENIES: Hematuria, Dysuria Musculoskeletal: DENIES: Joint pain Integumentary: DENIES: Rash Neurologic: COMPLAINS OF: Seizures Past Family Social History Past Medical History Seizures Past Surgical History Tubal ligation Appendectomy Allergies: Coded Allergies: Sulfa (Verified Allergy, Severe, HIVES, 09/16/16) *MDRO Multi-Drug Resistant Organism (Verified Adverse Reaction, Unknown, MRSA PCR Screen negative 10/20/14 and 10/29/14. Cleared, 09/16/16) MRSA MRSA PCR Screen negative 10/20/14 and 10/29/14. Cleared per Infection Control Family History Mother and father visiting pt in hospital healthy Social History Lives with boyfriend, uncle, 3 children Tobacco: Denies Alcohol: Socially Illicits: Denies Physical Exam Vital Signs Vital Signs Date Time Temp Pulse Resp B/P Pulse Ox O2 Delivery O2 Flow Rate FiO2 09/17/16 06:00 82 09/17/16 04:15 98.3 73 20 116/78 98 09/17/16 04:00 73 09/17/16 02:00 79 09/17/16 00:15 97.5 94 20 147/81 98 09/17/16 00:00 94 09/16/16 22:00 81 09/16/16 20:15 98.1 18 124/75 09/16/16 20:00 91 09/16/16 18:00 88 09/16/16 16:15 98.1 18 133/88 09/16/16 15:37 98.4 78 18 126/91 99 09/16/16 14:00 78 16 136/83 100 Room Air 09/16/16 10:20 84 16 127/83 98 Room Air Physical Exam GENERAL: This is a well-nourished, well-developed patient, in no apparent distress. Laying in bed with eyelid movement but not answering questions SKIN: No rashes, ecchymoses or lesions. Cool and dry. HEAD: Atraumatic. Normocephalic. EYES: Pupils equal round and reactive. Extraocular motions intact. No scleral icterus. No injection or drainage. When eyelids lifted her eyes roll to the side and she does not make eye contact ENT: Nose without bleeding, purulent drainage. No tongue lacerations. . Airway patent. NECK: No lymphadenopathy. Supple, nontender, no meningeal signs. CARDIOVASCULAR: Regular rate and rhythm without murmurs, gallops, or rubs. RESPIRATORY: Clear to auscultation. Breath sounds equal bilaterally. No wheezes , rales, or rhonchi. GASTROINTESTINAL: Abdomen soft, non-tender, nondistended. No hepato-splenomegaly , or palpable masses. No guarding. MUSCULOSKELETAL: Extremities without clubbing, cyanosis, or edema. No calf tenderness. NEUROLOGICAL: Awake and alert. Initially patient was nonverbal when Dr Shah was interviewing her but then became verbal answering questions for her. Speech was stuttered. Reports decreased sensation to touch on left upper and lower face. 4/5 upper and lower extremity. Patellar reflexes absent bilaterally. Pronator drift unremarkable. When I have seen her on multiple occasions she did not open her eyes spontaneously nor answer questions Laboratory Laboratory Tests Test 09/16/16 09/16/16 09/17/16 15:47 20:42 04:03 Blood Gas Puncture Site RT RADIAL Blood Gas Patient Temperature 98.6 Blood Gas HCO3 23 Blood Gas Base Excess -0.8 Blood Gas Oxygen Saturation 97 Arterial Blood pH 7.42 Arterial Blood Partial 36 Pressure CO2 Arterial Blood Partial 96 Pressure O2 Arterial Blood Oxygen Content 16.0 Arterial Blood 0.8 Carboxyhemoglobin Arterial Blood Methemoglobin 0.4 Blood Gas Hemoglobin 11.7 Oxygen Delivery Device ROOM AIR Erythrocyte Sedimentation Rate 18 Total Creatine Kinase 230 193 Creatine Kinase MB 0.6 0.5 Creatine Kinase MB % 0.3 0.3 Troponin I LESS THAN 0.02 Vitamin B12 Level 414 Free Thyroxine 0.85 Thyroid Stimulating Hormone 3.610 3rd Gen White Blood Count 6.5 Red Blood Count 4.21 Hemoglobin 11.2 Hematocrit 34.0 Mean Corpuscular Volume 80.8 Mean Corpuscular Hemoglobin 26.6 Mean Corpuscular Hemoglobin 32.9 Concent Red Cell Distribution Width 16.1 Platelet Count 290 Mean Platelet Volume 8.1 Neutrophils (%) (Auto) 41.1 Lymphocytes (%) (Auto) 44.9 Monocytes (%) (Auto) 10.8 Eosinophils (%) (Auto) 2.2 Basophils (%) (Auto) 1.0 Neutrophils # (Auto) 2.7 Lymphocytes # (Auto) 2.9 Monocytes # (Auto) 0.7 Eosinophils # (Auto) 0.1 Basophils # (Auto) 0.1 CBC Comment DIFF FINAL Differential Comment Sodium Level 140 Potassium Level 3.9 Chloride Level 109 Carbon Dioxide Level 25.0 Anion Gap 6 Blood Urea Nitrogen 5 Creatinine 0.73 Estimat Glomerular Filtration 114 Rate Random Glucose 87 Calcium Level 8.3 Result Diagram: 09/17/1640209/17/16402 Assessment and Plan Assessment and Plan 31-year-old female with a history significant for seizures. Admitted for seizure activity but now suspected of having pseudoseizures. Problem List: (1) Pseudoseizure Status: Acute Plan: pt had normal EEG at the same time as she was exhibiting activity that was seizure-like. She also has second normal EEG. If there was uncertainty, pts can have video EEG at [facility] in [place] but if the diagnosis is sure, pts do not need this. she will be watched and all her lab tests, O2 sats and ABG are all reassuring. Can hold sedating meds and consider evaluation by Psychiatry if warranted though she likely would not speak to them today. Appreciate help of [employer] and Neurology. (2) Seizure disorder Status: Acute Plan: Reported generalized seizure activity on the morning of admission. History of prior seizures but has not been taking medications for the last year due to insurance issues. Patient appeared to be post ictal. Continued to have very mild left-sided weakness. -CPK, UDS, EKG done -EEG: normal awake and drowsy. No evidence for a focal or diffuse abnormality as was repeat EEG -MRI Negative -neuro checks and seizure precautions -PT consult -Urine drug screen ordered Consulted Neuro: appreciate recommendations Medications: * IV Keppra x1 in ED * Keppra 1000mg PO BID (reported home dose of 1500mg BID) can give iv if she does not take po * Ativan for seizure initially but holding now as it is sedating (3) Nutrition, metabolism, and development symptoms Status: Acute Plan: Diet: Clears until mental status improves Fluids: D5 half NS at 75 Electrolytes: Unremarkable DVT prophylaxis: SCDs GI prophylaxis: Not indicated Suzie Beltrán MD Sep 17, 2016 09:32
[2016-09-17] MEDS: levETIRAcetam 1000 MG INJ 100 ML IV SCH ×2 (11:12→20:27)
[2016-09-17 13:53] LABS: BLOOD GAS BASE EXCESS -1.1 mmol/L (-2-2); BLOOD GAS HCO3 23 mmol/L (22-26); BLOOD GAS METHEMOGLOBIN 0.9 % (0-2); BLOOD GAS O2 HGB SATURATION 95 % (90-100); BLOOD GAS OXYGEN CONTENT 16.1 Vol % (12.0-20.0); BLOOD GAS PCO2 38 mmHg (38-42); BLOOD GAS PO2 91 mmHg (61-120); CRITICAL VALUE NO; DRAW SITE LT RADIAL; FIO2 21 %; NUMBER OF ARTERIAL PUNCTURES 1; STAT YES; TEMP CORR TO 98.6; ULNAR PULSE PRESENT
[2016-09-17] MEDS ORDERED: ACYCLOVIR IV SCH (14:15)
[2016-09-17] MEDS ORDERED: SODIUM CHLORIDE 0.9% IV SCH (14:15)
[2016-09-17] MEDS ORDERED: Vancomycin Consult Pharmacy 1 EA OTHER SCH (14:15)
--- NOTE | 2016-09-17 14:22 | HHI.FPPN ---
Addendum to progress note ADDENDUM Reason for addendum: Additonal documentation Additional information S: Resident responded to [facility]: Patient was transferred from [facility] to floor; at ~1200 patient was seen by nursing staff being lethargic and not responding to sternal rub. [facility] was called due to concerns regarding patient's mentals status/ GCS. Patient reportedly with stable vital signs at time of assessment by nursing staff. On arrival, discussed with patient's family and nursing staff, patient had not responded to questioning and concern was present for recent seizure and post- ictal state. Patient's mother supplements that this current episode has been similar to ones she experienced over the past several days. O: Afebrile HR 82, RR 18, BP 114/71, O2 sat 99 CV: Regular rate and rhythm Respiratory rate: Normal Neuro: Not responsive to questioning. No perceived response to sternal rub. Pupils equal and reactive A/P: Altered mental status/low GCS/seizure history Impression: Per EMR, initial impression by neurology, primary team, and parking supervisor that episodes more likely pseudoseizures than organic in etiology as EEGs and initial imaging negative. However, patient's exam still concerning for possible organic disease, and I had difficulty eliciting pain response Discussed with Dr. Covington: We'll obtain stat brain vascular imaging, repeat stat EEG, obtain LP, and start empiric antibiotics for bacterial meningitis and HSV at this time until Dr. Covington able to re-evaluate Seen and discussed with Dr. Alvarado; discussed with Dr. Beltrán Remarks Code blue called while in CT department; patient was witnessed having shaking episode suggestive of seizure. On arrival, patient with stable vital signs and not responsive to command or pain suggestive of possible post-ictal state. ( Update 1600) Head CT and CT A head/neck subsequently resulted: negative for suspicion for vascular etiology Discussed with Dr. Covington who had been able to evaluate patient: reassuring at this time that patient does not likely have CV disease or acute infectious cerebral disease; pseudoseizures suspected. Empiric antibiotics stopped. Patient will remain in [facility] for monitoring Harley Cochran MD R2 Sep 17, 2016 14:22
[2016-09-17] MEDS ORDERED: IOHEXOL 350 MG/ML 10 ML VIAL (for RAD DIAG) IV ONE (14:38)
--- NOTE | 2016-09-17 14:38 | RADRPT ---
EXAM DATE/TIME: 09/17/2016 13:58 [facility] COMPARISON: CT BRAIN W/O CONTRAST, June 02, 2015, 18:14. INDICATIONS : Seizure. RADIATION DOSE: 56.35 CTDIvol (mGy) MEDICAL HISTORY : Seizures. Stroke SURGICAL HISTORY : None. ENCOUNTER: Initial ACUITY: 1 day PAIN SCALE: Non-responsive LOCATION: cranial TECHNIQUE: Multiple contiguous axial images were obtained of the head. Using automated exposure control and adjustment of the mA and/or kV according to patient size, radiation dose was kept as low as reasonably achievable to obtain optimal diagnostic quality images. FINDINGS: CEREBRUM: The ventricles are normal for age. No evidence of midline shift, mass lesion, hemorrha ge or acute infarction. No extra-axial fluid collections are seen. POSTERIOR FOSSA: The cerebellum and brainstem are intact. The 4th ventricle is midline. The cer ebellopontine angle is unremarkable. EXTRACRANIAL: The visualized portion of the orbits is intact. SKULL: The calvaria is intact. No evidence of skull fracture. CONCLUSION: Negative CT scan of the head. Sam Glynn MD FACR on September 17, 2016 at 14:36 Board Certified Radiologist. This report was verified electronically.
[2016-09-17] MEDS ORDERED: cefTRIAXone INJ 2,000 MG in SODIUM CHLORIDE 0.9% INJ 100 ML IV SCH (15:00)
--- NOTE | 2016-09-17 15:17 | RADRPT ---
EXAM DATE/TIME: 09/17/2016 14:26 [facility] COMPARISON: CT BRAIN W/O CONTRAST, September 17, 2016, 13:58. INDICATIONS : Seizures. IV CONTRAST: 73 cc Omnipaque 350 (iohexol) IV ; Cumulative dose for multiple exams. RADIATION DOSE: 35.06 CTDIvol (mGy) ; Combined studies MEDICAL HISTORY : Seizures. Stroke SURGICAL HISTORY : None. ENCOUNTER: Initial ACUITY: 1 day PAIN SCALE: Non-responsive LOCATION: cranial TECHNIQUE: Volumetric scanning was performed using a multi-row detector CT scanner. The data was post processed with a variety of visualization algorithms including full volume maximum intensity projection, multi -planar sliding thin slab reformation, curved planar reformation, and surface rendering techniques. Using automated exposure control and adjustment of the mA and/or kV according to patient size, radiat ion dose was kept as low as reasonably achievable to obtain optimal diagnostic quality images. FINDINGS: There is excellent visualization of the major intracranial arteries out to the second-order branch ve ssels. There is no evidence for aneurysm, vessel truncation or stenosis, and no evidence for vascula r malformation. Flow is seen in the anterior communicating artery. No flow seen in either PCOM. CONCLUSION: Negative CTA of the [place]. David Coughlin MD on September 17, 2016 at 15:14 Board Certified Radiologist. This report was verified electronically.
--- NOTE | 2016-09-17 15:21 | RADRPT ---
EXAM DATE/TIME: 09/17/2016 14:26 [facility] COMPARISON: No previous studies available for comparison. INDICATIONS : Seizures. IV CONTRAST: 73 cc Omnipaque 350 (iohexol) IV ; Cumulative dose for multiple exams. RADIATION DOSE: 35.06 CTDIvol (mGy) ; Combined studies MEDICAL HISTORY : Seizures. Stroke SURGICAL HISTORY : None. ENCOUNTER: Initial ACUITY: 1 day PAIN SCALE: Non-responsive LOCATION: neck Elevated flow velocities and ICA/CCA ratios have been found to correlate with increased degrees of vessel stenosis, calculated as percentage of diameter relative to a normal segment of distal ICA/CCA. TECHNIQUE: Volumetric scanning was performed using a multirow detector CT scanner. The data was post processed with a variety of visualization algorithms including full-volume maximum intensity projection, multip lanar sliding thin-slab reformation, curved-planar reformation, and surface-rendering techniques. Us ing automated exposure control and adjustment of the mA and/or kV according to patient size, radiatio n dose was kept as low as reasonably achievable to obtain optimal diagnostic quality images. FINDINGS: AORTIC ARCH: There is a three-vessel origin of the great vessels from the aorta. No evidence of ostial narrowing. RIGHT CAROTID: The common carotid artery is intact. The carotid bulb has a normal configuration without ulceration o r narrowing. The internal carotid artery lumen is smooth without stenosis. The external carotid marlene ry is intact. LEFT CAROTID: The common carotid artery is intact. The carotid bulb has a normal configuration without ulceration or narrowing. The internal carotid artery lumen is smooth without stenosis. The external carotid ar monica is intact. VERTEBRALS: The vertebral system is left dominant. No stenotic lesion seen. CONCLUSION: Normal CT carotids. David Coughlin MD on September 17, 2016 at 15:18 Board Certified Radiologist. This report was verified electronically.
--- NOTE | 2016-09-17 15:41 | HHI.PR ---
Objective Vital Signs Date Time Temp Pulse Resp B/P Pulse Ox O2 Delivery O2 Flow Rate FiO2 09/17/16 12:15 98.2 82 18 114/71 99 09/17/16 12:00 91 09/17/16 10:00 93 09/17/16 08:15 98.6 91 18 108/65 99 09/17/16 08:00 91 09/17/16 06:00 82 09/17/16 04:15 98.3 73 20 116/78 98 09/17/16 04:00 73 09/17/16 02:00 79 09/17/16 00:15 97.5 94 20 147/81 98 09/17/16 00:00 94 09/16/16 22:00 81 09/16/16 20:15 98.1 18 124/75 09/16/16 20:00 91 09/16/16 18:00 88 09/16/16 16:15 98.1 18 133/88 I/O 09/16/16 09/16/16 09/16/16 09/17/16 09/17/16 09/17/16 07:00 15:00 23:00 07:00 15:00 23:00 Intake Total 400 ml Balance 400 ml Intake Oral 400 ml # Voids 1 Result Diagram: 09/17/16 0403 09/17/16 0403 Objective Remarks awake not stuttering speech vff pupil = follows all commands 5/5 t/o bue and ble toes down bilat shows left thumb for me not aphasic no clonus Assessment and Plan Assessment and Plan imp pseudosz came out of three spells with hypervent and stiffening by enrollment nurse with nail bed pressure i dw her she denies any stressors have psych see and i dw her and she is agreeable to transfer to [place] video telemetry if another spell i reviewed eeg 09/04/14 i thought although it looked a little atypical was probably just a sleep variant Luis Angel Covington MD Sep 17, 2016 15:41
[2016-09-17] MEDS ORDERED: ACYCLOVIR INJ 600 MG in SODIUM CHLORIDE 0.9% INJ 100 ML IV SCH (16:00)
[2016-09-17] MEDS ORDERED: VANCOMYCIN INJ 1,500 MG in SODIUM CHLORID 0.9% 500 ML INJ 500 ML IV SCH (17:00)
--- NOTE | 2016-09-17 17:16 | MG ---
cc: LYNDA COLES Lab No: [id number] Date: 09/17/16 Age: Sex: F Race: Seizure versus pseudoseizure. DESCRIPTION Diffuse theta slowing is seen at about 5 Hz with some sleep spindles noted within the stage 2 sleep, but somewhat of a sharp slow wave is seen over the bitemporal more so on the left than the right at epoch 32 on a transverse montage. Other normal-appearing stage 2 sleep discharges are noted including K-complexes, sleep spindles and vertex sharp waves, and at times they look sharp of course over the bilateral temporal lobes and I think they are normal sleep variants. Photic stimulation was performed without significant posterior driving. IMPRESSION Primarily a normal stage 2 sleep EEG throughout most of the recording. At times there is a slight asymmetry in the background as noted above or appears on the transverse montage a little sharper on the left midtemporal head region, but I think this is probably a normal variant of sleep for her. Clinical correlation is needed. MD BEN Otero/ADELITA /4:40 PM /5:07 PM
[2016-09-17 17:38] LABS: AUTOMATED NEUTROPHIL # 3.9 TH/MM3 (1.8-7.7); BASOPHIL # 0.1 TH/MM3 (0-0.2); BASOPHIL % 0.7 % (0.0-2.0); EOSINOPHIL # 0.1 TH/MM3 (0-0.4); EOSINOPHIL % 1.6 % (0.0-4.0); HEMO FLAGS DIFF FINAL; LYMPH % 33.9 % (9.0-44.0); LYMPHOCYTE # 2.3 TH/MM3 (1.0-4.8); MEAN CELL VOLUME 80.9 FL (80.0-100.0); MEAN CORPUSCULAR HGB CONC 32.1 % (32.0-36.0); MONO % 7.4 % (0.0-8.0); NEUT % 56.4 % (16.0-70.0); PLATELET COUNT 322 TH/MM3 (150-450); RED BLOOD COUNT 4.58 MIL/MM3 (4.00-5.30); RED CELL DISTRIBUTION WIDTH 16.2 % (11.6-17.2); WHITE BLOOD COUNT 6.9 TH/MM3 (4.0-11.0)
[2016-09-17 17:50] LABS: PROTHROMBIN TIME - PATIENT 11.2 SEC (9.8-11.6)
[2016-09-17 18:06] LABS: ALT (GPT) 20 U/L (10-53); ANION GAP 8 MEQ/L (5-15); AST (GOT) 14 U/L (15-37); BICARBONATE 25.5 MEQ/L (21.0-32.0); BLOOD UREA NITROGEN 3 MG/DL (7-18); CHLORIDE 107 MEQ/L (98-107); GLOMERULAR FILTRATION RATE 107 ML/MIN (>89); POTASSIUM 3.6 MEQ/L (3.5-5.1); SODIUM (NA) 140 MEQ/L (136-145)
[2016-09-17 18:08] LABS: ALKALINE PHOSPHATASE 58 U/L (45-117)
[2016-09-17] MEDS ORDERED: GADODIAMIDE PF 287 MG/ML 20 ML VIAL (for RAD MRI) IV ONE (22:19)
--- NOTE | 2016-09-17 22:54 | RADRPT ---
EXAM DATE/TIME: 09/17/2016 22:11 [facility] COMPARISON: MRI BRAIN W & W/O CONTRAST, May 12, 2015, 12:00. INDICATIONS : Seizures. CONTRAST: 20 cc Omniscan (gadodiamide) IV MEDICAL HISTORY : Seizures. SURGICAL HISTORY : Appendectomy. Tubal ligation. ENCOUNTER: Initial ACUITY: 1 day PAIN SCORE: 0/10 LOCATION: cranial TECHNIQUE: Multiplanar, multisequence MRI of the brain was performed both prior to and following the administrat ion of paramagnetic contrast. FINDINGS: CEREBRUM: The ventricles are normal for age. No evidence of midline shift, mass lesion, hemorrhage or acute in farction. No extraaxial fluid collections are seen. The pituitary gland and suprasellar cistern are normal in configuration. WHITE MATTER: No significant signal abnormalities are seen in the white matter. POSTERIOR FOSSA: The cerebellum and brainstem are intact. The 4th ventricle is midline. The cerebellopontine angle is unremarkable. The cerebellar tonsils are normal in position. DIFFUSION IMAGING: No focal areas of restricted diffusion are seen. No evidence of acute infarction. EXTRACRANIAL: The visualized portions of the orbits and paranasal sinuses are unremarkable. POST-CONTRAST: No abnormal areas of parenchymal or dural enhancement. No evidence of blood-brain barrier breakdown. CONCLUSION: Negative MRI of the brain with and without contrast. David Coughlin MD on September 17, 2016 at 22:49 Board Certified Radiologist. This report was verified electronically.
--- NOTE | 2016-09-17 23:03 | RADRPT ---
EXAM DATE/TIME: 09/17/2016 22:11 [facility] COMPARISON: No previous studies available for comparison. INDICATIONS : Seizures. CONTRAST: 20 cc Omniscan (gadodiamide) IV MEDICAL HISTORY : Seizures. SURGICAL HISTORY : Tubal ligation. Appendectomy. ENCOUNTER: Initial ACUITY: 2 day PAIN SCORE: 0/10 LOCATION: cranial Please note a normal MRA of the brain does not entirely exclude the possibility of a small aneurysm, nor the possibility of distal intracranial vessel disease. TECHNIQUE: MR venography of the brain was performed with multiplanar and 3D reconstructions. FINDINGS: There is flow seen throughout the sagittal sinus, internal cerebral veins, straight sinus, and transv erse sinus. The torcula Herophili is slightly more prominent on the left than on the right. There a re several high cortical draining veins which are fairly symmetric in appearance. CONCLUSION: Negative MRV with contrast. David Coughlin MD on September 17, 2016 at 23:00 Board Certified Radiologist. This report was verified electronically.
[2016-09-18] VITALS (7 sets, daily range): BP systolic 92–117; BP diastolic 53–77; PULSE 65–84; RESP 14–18; TEMP 98–98.4; O2SAT 90–97
[2016-09-18] MEDS: CHLORHEXIDINE GLUCONATE 2 % 1 PACK (2 CLOTHS)(taper/protocol) TOPICAL SCH (04:00)
[2016-09-18] MEDS: DEXT 5%-NACL 0.45% 1000 ML INJ 1,000 ML IV SCH (05:15)
[2016-09-18 05:35] LABS: HEMATOCRIT 35.1 % (35.0-46.0); MEAN CELL VOLUME 80.1 FL (80.0-100.0); MEAN CORPUSCULAR HGB CONC 32.5 % (32.0-36.0); PLATELET COUNT 290 TH/MM3 (150-450); RED BLOOD COUNT 4.38 MIL/MM3 (4.00-5.30); RED CELL DISTRIBUTION WIDTH 15.9 % (11.6-17.2); REVIEW FLAG FINAL; WHITE BLOOD COUNT 6.2 TH/MM3 (4.0-11.0)
[2016-09-18 05:40] LABS: APTT (PATIENT) 25.2 SEC (24.3-30.1)
[2016-09-18 05:56] LABS: BICARBONATE 25.7 MEQ/L (21.0-32.0); POTASSIUM 3.7 MEQ/L (3.5-5.1)
[2016-09-18] MEDS: levETIRAcetam 1000 MG INJ 100 ML IV SCH (09:00)
[2016-09-18] MEDS: SODIUM CHLORIDE 0.9% FLUSH 10 ML FLUSH IV FLUSH SCH (09:00)
--- NOTE | 2016-09-18 09:36 | HHI.FPPN ---
Subjective Remarks Pt seen and examined this morning. Pt awake and alert this morning. Pt reports sleeping well. Endorses headache this morning, otherwise no complaints. Doesn't remember what happened up until yesterday afternoon. Denies any chest pain, SOB , abdominal pain. Wants to eat. (Paul Todd MD R1) Objective Vitals Vital Signs Date Time Temp Pulse Resp B/P Pulse Ox O2 Delivery O2 Flow Rate FiO2 09/18/16 06:00 74 09/18/16 06:00 74 09/18/16 04:00 98.0 69 14 92/53 94 09/18/16 04:00 69 09/18/16 02:00 68 09/18/16 00:00 98.4 66 18 117/74 90 09/18/16 00:00 66 09/17/16 22:00 86 09/17/16 20:00 98.3 80 20 104/57 98 09/17/16 20:00 80 09/17/16 18:00 76 09/17/16 16:15 97.9 73 14 111/58 98 09/17/16 16:00 70 09/17/16 15:00 81 09/17/16 12:15 98.2 82 18 114/71 99 09/17/16 12:00 91 09/17/16 10:00 93 I/O 09/17/16 09/17/16 09/17/16 09/18/16 09/18/16 09/18/16 07:00 15:00 23:00 07:00 15:00 23:00 Intake Total 100 ml 150 ml Output Total 650 ml Balance -550 ml 150 ml Intake Oral 100 ml IV Total 150 ml Output Urine Total 650 ml # Voids 5 (Paul Todd MD R1) Result Diagram: 09/18/1643109/18/16431 Objective Remarks GEN: Well-developed, well-nourished patient. No acute distress. CV: Regular rate and rhythm without obvious murmurs LUNGS: Clear to auscultation bilaterally. Normal respiratory effort. No wheezes , rales, rhonchi. GI: Soft, nontender, nondistended. No palpable masses. Bowel sounds WNL. EXT: No edema. NEURO/PSYCH: Afocal. Awake, alert, and oriented x3. Appropriate insight and judgment. Follows commands. Normal strength. NFND. (Paul Todd MD R1) A/P Assessment and Plan 31-year-old female with a history significant for seizures. Admitted for seizure activity but now suspected of having pseudoseizures. Discharge Planning 1-2 days, Pending neurology recs (Paul Todd MD R1) Attending Attestation Patient seen and examined. Case reviewed and discussed with the resident team. Agree with plan of care as discussed with me and documented in the resident note. after she was informed that more seizure like activity would result in a transfer to [facility] or [facility], there were no new seizures. (Suzie Beltrán MD) Problem List: (1) Pseudoseizure Status: Acute Plan: Pt had normal EEG at the same time as she was exhibiting activity that was seizure-like. She also has second normal EEG. All her lab tests, O2 sats and ABG are all reassuring. Can hold sedating meds and consider evaluation by Psychiatry if warranted though she likely would not speak to them today. All imaging negative for acute process. -Psychiatry consulted, appreciate recs -If another spell, may transfer to [facility] for Video EEG -Hold sedation/Ativan (2) Seizure disorder Status: Acute Plan: Reported generalized seizure activity on the morning of admission. History of prior seizures but has not been taking medications for the last year due to insurance issues. Patient appeared to be post ictal. Continued to have very mild left-sided weakness. EEG: normal awake and drowsy. No evidence for a focal or diffuse abnormality as was repeat EEG; repeat EEGs are negative for seizure activity MRI Negative -Neuro checks and seizure precautions -PT consult Consulted Neuro: appreciate recommendations -Pt possibly with underlying seizures and pseudoseizures -Plan as above, continue Keppra Medications: * IV Keppra x1 in ED * Keppra 1000mg IV BID (reported home dose of 1500mg BID) * Ativan for seizure initially but holding now as it is sedating (3) Nutrition, metabolism, and development symptoms Status: Acute Plan: Diet: Regular Fluids: D5 half NS at 100, may wean off if tolerating PO Electrolytes: Unremarkable DVT prophylaxis: SCDs GI prophylaxis: Not indicated (Paul Todd MD R1) Paul Todd MD R1 Sep 18, 2016 09:36 Suzie Beltrán MD Sep 18, 2016 14:44
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
[2016-09-18] MEDS ORDERED: LEVE500 PO (12:25)
--- NOTE | 2016-09-18 12:26 | HHI.DCPOC ---
Discharge Care Plan Diagnosis: (1) Pseudoseizure (2) Seizure disorder Goals to Promote Your Health * To prevent worsening of your condition and complications * To maintain your health at the optimal level Directions to Meet Your Goals Take your medications as prescribed Follow your dietary instruction Follow activity as directed Keep your appointments as scheduled Take your immunizations and boosters as scheduled If your symptoms worsen call your PCP, if no PCP go to Urgent Care Center or Emergency Room Smoking is Dangerous to Your Health. Avoid second hand smoke Call the 24-hour hour crisis hotline for domestic abuse at Paul Todd MD R1 Sep 18, 2016 12:26
--- NOTE | 2016-09-18 13:32 | HHI.PR ---
Subjective Remarks I came to see pt in psychiatric consultation ~13:00 today (consult labeled routine, received 09/17 @ 17:18), but I was informed by the RN that pt had already been discharged. Objective Labs Test 09/17/16 09/17/16 09/18/16 13:40 16:41 04:32 Blood Gas Puncture Site LT RADIAL Blood Gas Patient Temperature 98.6 Blood Gas HCO3 23 mmol/L Blood Gas Base Excess -1.1 mmol/L Blood Gas Oxygen Saturation 95 % Arterial Blood pH 7.40 Arterial Blood Partial 38 mmHg Pressure CO2 Arterial Blood Partial 91 mmHg Pressure O2 Arterial Blood Oxygen Content 16.1 Vol % Arterial Blood 1.0 % Carboxyhemoglobin Arterial Blood Methemoglobin 0.9 % Blood Gas Hemoglobin 12.0 G/DL Blood Gas Inspired Oxygen 21 % White Blood Count 6.9 TH/MM3 6.2 TH/MM3 Red Blood Count 4.58 MIL/MM3 4.38 MIL/MM3 Hemoglobin 11.9 GM/DL 11.4 GM/DL Hematocrit 37.0 % 35.1 % Mean Corpuscular Volume 80.9 FL 80.1 FL Mean Corpuscular Hemoglobin 26.0 PG 26.0 PG Mean Corpuscular Hemoglobin 32.1 % 32.5 % Concent Red Cell Distribution Width 16.2 % 15.9 % Platelet Count 322 TH/MM3 290 TH/MM3 Mean Platelet Volume 8.2 FL 8.1 FL Neutrophils (%) (Auto) 56.4 % Lymphocytes (%) (Auto) 33.9 % Monocytes (%) (Auto) 7.4 % Eosinophils (%) (Auto) 1.6 % Basophils (%) (Auto) 0.7 % Neutrophils # (Auto) 3.9 TH/MM3 Lymphocytes # (Auto) 2.3 TH/MM3 Monocytes # (Auto) 0.5 TH/MM3 Eosinophils # (Auto) 0.1 TH/MM3 Basophils # (Auto) 0.1 TH/MM3 CBC Comment DIFF FINAL Differential Comment Prothrombin Time 11.2 SEC Prothromb Time International 1.0 RATIO Ratio Sodium Level 140 MEQ/L 141 MEQ/L Potassium Level 3.6 MEQ/L 3.7 MEQ/L Chloride Level 107 MEQ/L 108 MEQ/L Carbon Dioxide Level 25.5 MEQ/L 25.7 MEQ/L Anion Gap 8 MEQ/L 7 MEQ/L Blood Urea Nitrogen 3 MG/DL 6 MG/DL Creatinine 0.77 MG/DL 0.77 MG/DL Estimat Glomerular Filtration 107 ML/MIN 107 ML/MIN Rate Random Glucose 76 MG/DL 77 MG/DL Calcium Level 8.6 MG/DL 8.7 MG/DL Total Bilirubin 1.0 MG/DL Aspartate Amino Transf 14 U/L (AST/SGOT) Alanine Aminotransferase 20 U/L (ALT/SGPT) Alkaline Phosphatase 58 U/L Total Protein 7.5 GM/DL Albumin 3.6 GM/DL Activated Partial 25.2 SEC Thromboplast Time Date/Time Procedure Status Source Growth 09/17/16 16:41 Aerobic Blood Culture - Preliminary Resulted Blood Peripheral NO GROWTH IN 1 DAY 09/17/16 16:41 Anaerobic Blood Culture - Preliminary Resulted Blood Peripheral NO GROWTH IN 1 DAY Vitals/IOs Vital Signs Date Time Temp Pulse Resp B/P Pulse Ox O2 Delivery O2 Flow Rate FiO2 09/18/16 12:00 84 09/18/16 12:00 98.1 16 115/77 92 09/16/16 14:00 Room Air Intake and Output 09/17/16 09/17/16 09/18/16 08:00 16:00 00:00 Intake Total 100 ml Output Total 650 ml Balance -550 ml Assessment & Plan Problem List: (1) Encounter for psychiatric assessment ICD Code: Z76.89 Assessment & Plan Estimated LOS: Luis Angel Clark MD Sep 18, 2016 13:32
--- NOTE | 2016-09-18 20:47 | HHI.DS ---
Discharge Summary Admission Date Sep 16, 2016 at 12:15 Discharge Date: Sep 18, 2016 Admitting Diagnosis seizures (1) Pseudoseizure Diagnosis: Principal Plan: Pt had normal EEG at the same time as she was exhibiting activity that was seizure-like. She also has second normal EEG. All her lab tests, O2 sats and ABG are all reassuring. Can hold sedating meds and consider evaluation by Psychiatry if warranted though she likely would not speak to them today. All imaging negative for acute process. -Psychiatry consulted, appreciate recs -If another spell, may transfer to [facility] for Video EEG -Hold sedation/Ativan (2) Seizure disorder Diagnosis: Principal Plan: Reported generalized seizure activity on the morning of admission. History of prior seizures but has not been taking medications for the last year due to insurance issues. Patient appeared to be post ictal. Continued to have very mild left-sided weakness. EEG: normal awake and drowsy. No evidence for a focal or diffuse abnormality as was repeat EEG; repeat EEGs are negative for seizure activity MRI Negative -Neuro checks and seizure precautions -PT consult Consulted Neuro: appreciate recommendations -Pt possibly with underlying seizures and pseudoseizures -Plan as above, continue Keppra Medications: * IV Keppra x1 in ED * Keppra 1000mg IV BID (reported home dose of 1500mg BID) * Ativan for seizure initially but holding now as it is sedating (3) Nutrition, metabolism, and development symptoms Diagnosis: Secondary Plan: Diet: Regular Fluids: D5 half NS at 100, may wean off if tolerating PO Electrolytes: Unremarkable DVT prophylaxis: SCDs GI prophylaxis: Not indicated Consultants Neurology, Psychiatry Brief History Jessica Ahmadi is a 31yo male with PMH significant for seizures who presented to the hospital for seizures. History was obtained from both patient and her mother initially. At 6:30 the morning of admission, her boyfriend was awakened to the patient shaking especially of her arms bilaterally in a prone position and being unresponsive. Boyfriend then called the mother who brought her to the ED. History of seizures for the last 2 years that began during her second . Her seizures are typically absence seizures that are preceded by chest pain and result in left-sided weakness and some stuttering speech after seizures. She reports having similar chest pain before the onset of her generalized seizure today. Patient has not had a generalized seizure before. Last seizure was one year ago at which time she was taking Keppra. She had discontinued the medication for the last year due to insurance issues. Denies any urinary/fecal incontinence. Mother reports that seizure lasted for a few minutes but was unable to specify the amount of time. Since the initial generalized seizure, patient has been stuttering which is not her baseline but she would have time after her prior seizures. Prior to the visit today, patient has been complaining of generalized fatigue and decreased appetite over the last 3 weeks. Denies any sick contacts or any other symptoms. Prior neurologist was Dr. Okeefe. She was in the ED and was not having any tonic clonic activity but started to become generally unresponsive to speech, sternal rub, etc. and had a nearly constant "eye fluttering" where her eyelids were obviously showing eye movements but her eyes were not opening. She had an initial EEG that was normal as well as a second EEG while she was exhibiting seizure-like activity that both did not show seizures. She was given multiple doses of ativan which did not stop any activity but did appear to be sedating. She had an episode of altered breathing and activity this am that quickly stopped with nail rub. It was explained to her parents that she appeared to be having pseudoseizures and that all her labs are very reassuring as well as her other studies. Her mother was very concerned that she could have bilateral carotid blockages but it was explained that this would show up on her MRI and other tests if she had no blood flow to a good portion of her brain. CBC/BMP: 09/18/16 0432 09/18/16 0432 Significant Findings Laboratory Tests Test 09/16/16 09/16/16 09/16/16 09/17/16 08:53 15:47 20:42 04:03 Mean Corpuscular Volume 79.6 FL (80.0-100.0) Mean Corpuscular Hemoglobin 26.5 PG 26.6 PG (27.0-34.0) (27.0-34.0) Blood Urea Nitrogen 6 MG/DL (7-18) 5 MG/DL (7-18) Total Creatine Kinase 335 U/L 230 U/L 193 U/L (26-192) (26-192) (26-192) Arterial Blood Partial 36 mmHg (38-42) Pressure CO2 Blood Gas Hemoglobin 11.7 G/DL (12.0-16.0) Troponin I LESS THAN 0.02 NG/ML (0.02-0.05) Hemoglobin 11.2 GM/DL (11.6-15.3) Hematocrit 34.0 % (35.0-46.0) Lymphocytes (%) (Auto) 44.9 % (9.0-44.0) Monocytes (%) (Auto) 10.8 % (0.0-8.0) Chloride Level 109 MEQ/L (98-107) Calcium Level 8.3 MG/DL (8.5-10.1) Test 09/17/16 09/18/16 16:41 04:32 Mean Corpuscular Hemoglobin 26.0 PG 26.0 PG (27.0-34.0) (27.0-34.0) Blood Urea Nitrogen 3 MG/DL (7-18) 6 MG/DL (7-18) Aspartate Amino Transf 14 U/L (15-37) (AST/SGOT) Hemoglobin 11.4 GM/DL (11.6-15.3) Chloride Level 108 MEQ/L (98-107) Imaging Last Impressions Neck CTA 09/17/161404 Signed Impressions: Service Date/Time: Saturday, September 17, 2016 14:26 - CONCLUSION: Normal CT carotids. David Coughlin MD Head CT 09/17/16 1405 Signed Impressions: Service Date/Time: Saturday, September 17, 2016 13:58 - CONCLUSION: Negative CT scan of the head. Sam Glynn MD FACR Head/Brain Mag Res Venography 09/17/16 0000 Signed Impressions: Service Date/Time: Saturday, September 17, 2016 22:11 - CONCLUSION: Negative MRV with contrast. David Coughlin MD Head CTA 09/17/16 0000 Signed Impressions: Service Date/Time: Saturday, September 17, 2016 14:26 - CONCLUSION: Negative CTA of the [place] of [place]. David Coughlin MD Brain MRI 09/17/16 0000 Signed Impressions: Service Date/Time: Saturday, September 17, 2016 22:11 - CONCLUSION: Negative MRI of the brain with and without contrast. David Coughlin MD PE at Discharge GEN: Well-developed, well-nourished patient. No acute distress. CV: Regular rate and rhythm without obvious murmurs LUNGS: Clear to auscultation bilaterally. Normal respiratory effort. No wheezes , rales, rhonchi. GI: Soft, nontender, nondistended. No palpable masses. Bowel sounds WNL. EXT: No edema. NEURO/PSYCH: Afocal. Awake, alert, and oriented x3. Appropriate insight and judgment. Follows commands. Normal strength. NFND. Hospital Course Patient is a 31-year-old female with past medical history of seizures, presents for seizure. The morning of admission, patient had a seizure and became unresponsive. She states she usually has absence seizures in the past that are preceded by chest pain resolved left sided weakness. She has been on Keppra in the past but discontinued the medication due to insurance issues. Patient was admitted and workup was obtained. Initial imaging was negative and EEG did not show seizure activity. Neurology was consulted. Patient was restarted on Keppra 1000 mg by mouth twice a day. Later that day, Halicat called on patient due to unresponsiveness. Vital signs remained stable, repeat EEG did not show seizure activity. Neurology attributed the episodes most likely due to pseudoseizures. Patient was transferred to the ICU and critical care was consulted, who recommended close observation and withholding of Ativan and daily medications. Patient's vital signs remained stable throughout admission. Patient remains somnolent the next afternoon. Patient was transferred to regular 4, and another Halicat was called on the patient for lethargy. Patient's vitals were stable and initial workup was all negative. Stat imaging was negative. Neurology was contacted and was reassured that there was no acute disease, pseudoseizures suspected. At that point patient became more alert and oriented and back to baseline mental status. At this point, psychiatry was consulted for evaluation. However, patient was discharged without discharge order and psychiatry was unable to evaluate. Patient was to be discharged with taking Keppra 500 mg by mouth twice a day and follow-up with neurology. Pt Condition on Discharge: Stable Discharge Instructions DIET: Follow Instructions for: As Tolerated, No Restrictions Other Activity Instructions: Per neurology, patient to drive for 6 months also not to bathe alone, swimming alone, climb heights, use power tools, rike bike, ride a motorcycle or any other activities if had a seizure could cause injury, not to bathe her baby alone. Follow up Referrals: Neurology - 1 Week with Luis Angel Covington MD Physician - 1 Week New Medications: Levetiracetam (Keppra) 500 Mg Tab 500 MG PO BID Control Seizures #60 Ref 0 TAB Discontinued Medications: Levetiracetam (Keppra) 500 Mg Tab 1500 MG PO BID Control Seizures Days 30 Ref 0 TAB Paul Todd MD R1 Sep 18, 2016 20:47
[2016-09-19] MEDS ORDERED: PHARMACY ORDERED LAB ONE (04:45)
[2016-09-19 13:53] LABS: ANA SCREEN NEG (NEG)
[2016-09-19 15:53] LABS: RAPID PLASMA REAGIN SCREEN NON-REACTIVE (NON-REACTVE)
== END 2016-09-18 12:45 | disposition home or self-care (01) | DRG 880 ==
LOC: NEPC 08:00 → NEDA 11:52 → OBSVTOIN 12:15 → NEPFCDU 15:27 → HIME 16:00 → N05B 09-17 13:00 → HIME 09-17 14:45
PROVIDERS: ADMIT Family Medicine; ATTEND Family Medicine
DX: F44.5 Conversion disorder with seizures or convulsions (principal); G93.41 Metabolic encephalopathy; R53.1 Weakness; Z86.73 Personal history of transient ischemic attack (TIA), and cerebral infarction without residual deficits; Z88.2 Allergy status to sulfonamides; Z91.14 Patient's other noncompliance with medication regimen
CPT/HCPCS: 36600; 70450; 70496; 70498; 70545; 70551; 70553; 80048; 80053; 82550; 82552; 82607; 82805; 82948; 83735; 84425; 84439; 84443; 84484; 84702; 85025; 85027; 85610; 85652; 85730; 86038; 86592; 87040; 95819; 96374; A9579; J1953; J2060; J2405; Q2009; Q9967

== ENCOUNTER 2017-08-16 07:53 | Emergency (ER) | payer SELFPAY ==
[~2017-08-16] VITALS: Ht 167.6 cm; Wt 82.0 kg
[~2017-08-16 07:53] MED LIST changes: -ASPI325T PO
[2017-08-16 07:54] VITALS: BP 140/99; PULSE 87; RESP 16; TEMP 98.3; O2SAT 97
[2017-08-16] MEDS ORDERED: LEVE10003 PO (08:10)
[2017-08-16] MEDS ORDERED: VIMP200T PO (08:10)
[2017-08-16 08:11] VITALS: BP 135/89; PULSE 88; RESP 17; O2SAT 100
--- NOTE | 2017-08-16 08:24 | PD ---
HPI Chief Complaint: Neuro Symptoms/ Deficits Time Seen by Provider: 08:11 Travel History International Travel<30 days: No Contact w/Intl Traveler<30days: No Traveled to known affect area: No History of Present Illness HPI This is a 32-year-old female presents emergency department for evaluation of head pressure which she states is not pain right sided weakness numbness and tingling for the past several hours, patient states she has a history of TIA has been admitted in the past year for nonspecific symptoms extensive workup including multiple CT heads, multiple MRIs EEGs all of which were negative. Her last discharge summary included a diagnosis of both seizure and pseudoseizure disorder. Patient states she has been taking her Keppra Vimpat and aspirin. She is also been seeing Dr. Matias for palpitations and apparently is also had a hypercoagulable workup which results are not known. Patient states her symptoms are moderate, she called Dr. Okeefe's office and was immediately referred here, she denies any chest pain shortness of breath nausea or vomiting. Denies any abdominal pain vaginal bleeding or vaginal discharge. PFSH Past Medical History Hx Anticoagulant Therapy: Yes (ASPIRIN) Asthma: Yes (CHILDHOOD) Blood Disorders: No Cancer: No Cardiovascular Problems: Yes Chemotherapy: No Cerebrovascular Accident: Yes (HX OF POSSIBLE CVA/TIA ) Diabetes: No Diminished Hearing: No Endocrine: No Gastrointestinal Disorders: No Genitourinary: No Hepatitis: No Hiatal Hernia: No Immune Disorder: No Implanted Vascular Access Dvce: No Musculoskeletal: No Neurologic: Yes (MINISTROKES , SEIZURES, WEAKNESS LEFT SIDED, MEMORY LOSS, MIGRAINES) Psychiatric: No Reproductive: No Respiratory: No Immunizations Current: Yes Migraines: Yes Radiation Therapy: No Seizures: Yes Thyroid Disease: No ?: Not LMP: 08/16/17 : 4 Para: 3 Miscarriage: 1 : 1 Tubal Ligation: Yes Past Surgical History Abdominal Surgery: Yes (APPENDECTOMY) AICD: No Appendectomy: Yes Arteriovenous Shunt: No Body Medical Devices: NONE Cardiac Surgery: No Ear Surgery: No Endocrine Surgery: No Eye Surgery: No Genitourinary Surgery: No Gynecologic Surgery: No Insulin Pump: No Joint Replacement: No Oral Surgery: No Pacemaker: No Thoracic Surgery: No Other Surgery: Yes Social History Alcohol Use: No Tobacco Use: No Substance Use: No Allergies-Medications (Allergen,Severity, Reaction): Coded Allergies: Sulfa (Sulfonamide Antibiotics) (Unverified Allergy, Severe, HIVES, ) *MDRO Multi-Drug Resistant Organism (Verified Adverse Reaction, Unknown, MRSA PCR Screen negative 10/20/14 and 10/29/14. Cleared, 08/16/17) MRSA PCR Screens NEGATIVE - 10/20/14 & 10/29/14 CLEARED PER INFECTION CONTROL PROTOCOL Reported Meds & Prescriptions Reported Meds & Active Scripts Active Reported Vimpat (Lacosamide) 200 Mg Tab 500 Mg PO BID Levetiracetam 1,000 Mg Tab 1,000 Mg PO TID Review of Systems Except as stated in HPI: all other systems reviewed are Neg Physical Exam Narrative GENERAL: Well-developed well-nourished in no obvious distress. She is sitting on a stretcher playing on her phone with both hands. SKIN: Focused skin assessment warm/dry. HEAD: Atraumatic. Normocephalic. EYES: Pupils equal and round. No scleral icterus. No injection or drainage. ENT: No nasal bleeding or discharge. Mucous membranes pink and moist. NECK: Trachea midline. No JVD. CARDIOVASCULAR: Regular rate and rhythm. No murmur appreciated. RESPIRATORY: No accessory muscle use. Clear to auscultation. Breath sounds equal bilaterally. GASTROINTESTINAL: Abdomen soft, non-tender, nondistended. Hepatic and splenic margins not palpable. MUSCULOSKELETAL: No obvious deformities. No clubbing. No cyanosis. No edema. NEUROLOGICAL: Awake and alert. Cranial nerves II through XII grossly intact and nonfocal, 5 out of 5 strength in all 4 extremities, cerebellar testing with [id number] and heel barillas testing negative PSYCHIATRIC: Appropriate mood and affect; insight and judgment normal. Data Data Last Documented VS Vital Signs Date Time Temp Pulse Resp B/P (MAP) Pulse Ox O2 Delivery O2 Flow Rate FiO2 08/16/17 10:53 08/16/17 08:11 88 17 100 Room Air 08/16/17 07:54 98.3 Orders Orders Electrocardiogram (08/16/17 ) Complete Blood Count With Diff (08/16/17 08:21) Comprehensive Metabolic Panel (08/16/17 08:21) Urinalysis - C+S If Indicated (08/16/17 08:21) Iv Access Insert/Monitor (08/16/17 08:21) Ecg Monitoring (08/16/17 08:21) Oximetry (08/16/17 08:21) Sodium Chloride 0.9% Flush (Ns Flush) (08/16/17 08:30) Ed Urine Pregnancytest Poc (08/16/17 08:21) Ed Discharge Order (08/16/17 10:31) Labs Laboratory Tests Test 08/16/17 08:29 08/16/17 08:30 White Blood Count 6.0 TH/MM3 Red Blood Count 4.24 MIL/MM3 Hemoglobin 12.3 GM/DL Hematocrit 35.3 % Mean Corpuscular Volume 83.2 FL Mean Corpuscular Hemoglobin 29.1 PG Mean Corpuscular Hemoglobin Concent 34.9 % Red Cell Distribution Width 14.6 % Platelet Count 311 TH/MM3 Mean Platelet Volume 7.7 FL Neutrophils (%) (Auto) 71.2 % Lymphocytes (%) (Auto) 20.2 % Monocytes (%) (Auto) 7.7 % Eosinophils (%) (Auto) 0.7 % Basophils (%) (Auto) 0.2 % Neutrophils # (Auto) 4.2 TH/MM3 Lymphocytes # (Auto) 1.2 TH/MM3 Monocytes # (Auto) 0.5 TH/MM3 Eosinophils # (Auto) 0.0 TH/MM3 Basophils # (Auto) 0.0 TH/MM3 CBC Comment DIFF FINAL Differential Comment Blood Urea Nitrogen 9 MG/DL Creatinine 0.90 MG/DL Random Glucose 91 MG/DL Total Protein 8.0 GM/DL Albumin 3.8 GM/DL Calcium Level 8.7 MG/DL Alkaline Phosphatase 77 U/L Aspartate Amino Transf (AST/SGOT) 18 U/L Alanine Aminotransferase (ALT/SGPT) 24 U/L Total Bilirubin 1.8 MG/DL Sodium Level 138 MEQ/L Potassium Level 3.6 MEQ/L Chloride Level 104 MEQ/L Carbon Dioxide Level 27.6 MEQ/L Anion Gap 6 MEQ/L Estimat Glomerular Filtration Rate 89 ML/MIN Urine Color YELLOW Urine Turbidity CLEAR Urine pH 5.5 Urine Specific [place] 1.023 Urine Protein TRACE mg/dL Urine Glucose (UA) NEG mg/dL Urine Ketones NEG mg/dL Urine Occult Blood MOD Urine Nitrite NEG Urine Bilirubin NEG Urine Urobilinogen LESS THAN 2.0 MG/DL Urine Leukocyte Esterase NEG Urine RBC 1 /hpf Urine WBC 2 /hpf Urine Squamous Epithelial Cells 3 /hpf Urine Bacteria RARE /hpf Urine Mucus MOD /lpf Microscopic Urinalysis Comment CULT NOT INDICATED MDM Medical Decision Making Medical Screen Exam Complete: Yes Emergency Medical Condition: Yes Interpretation(s) EKG shows normal sinus rhythm normal axis normal R-wave progression. No concerning ST segment changes. Intervals within normal limits. this a normal EKG per Differential Diagnosis Seizure aura, complex migraine, somatoform disorder. Narrative Course Patient was roomed in the emergency department, basic workup was negative including electrolytes here. Patient was observed in the emergency department and no seizure activity was seen. I do not see an indication for a CT head or other imaging modality at this time as the patient is nonfocal. Reading through the patient's records she has history of both seizures and pseudoseizures, certainly I think that a somatoform disorder is a possibility here. The patient was discussed with Dr. Okeefe who agrees. He also has made medication suggestions as below will see the patient on Monday or Monday (4-5 days). Discussed the recommendations with the patient and she is agreeable. At this time she stated that she just came in to make sure she was not about to have a seizure. She is stable for discharge Diagnosis Primary Impression: Pressure in head Referrals: Darvin Okeefe MD PhD Additional Instructions: Per Dr. Okeefe, Increase Vimpat to 500mg three times/day. He would like to see you in the office monday or monday. Med/Other Pt SpecificInfo: Prescription(s) given Disposition: DISCHARGE HOME Condition: Stable Ruben Hua MD Aug 16, 2017 08:24
[2017-08-16] MEDS ORDERED: SODIUM CHLORIDE 0.9% FLUSH 10 ML FLUSH IV FLUSH PRN (08:30)
[2017-08-16 08:49] LABS: BACTERIA, URINE RARE /hpf; BILIRUBIN, URINE NEG (NEG); BLOOD, URINE MOD (NEG); GLUCOSE,URINE NEG (NEG); KETONE, URINE NEG (NEG); MUCUS URINE MOD /lpf (OCC); NITRITE,URINE NEG (NEG); PH, URINE 5.5 (5.0-8.5); SQUAMOUS EPITHELIAL CELL URINE 3 /hpf (0-5); URINE COLOR YELLOW (YELLW/STRAW); URINE LEUKOCYTE ESTERASE NEG (NEG)
[2017-08-16 08:51] LABS: AUTOMATED NEUTROPHIL # 4.2 TH/MM3 (1.8-7.7); BASOPHIL % 0.2 % (0.0-2.0); EOSINOPHIL % 0.7 % (0.0-4.0); HEMATOCRIT 35.3 % (35.0-46.0); HEMOGLOBIN 12.3 GM/DL (11.6-15.3); LYMPH % 20.2 % (9.0-44.0); LYMPHOCYTE # 1.2 TH/MM3 (1.0-4.8); MEAN CELL VOLUME 83.2 FL (80.0-100.0); MEAN CORPUSCULAR HEMOGLOBIN 29.1 PG (27.0-34.0); MEAN CORPUSCULAR HGB CONC 34.9 % (32.0-36.0); MEAN PLATELET VOLUME 7.7 FL (7.0-11.0); MONO % 7.7 % (0.0-8.0); MONOCYTE # 0.5 TH/MM3 (0-0.9); NEUT % 71.2 % (16.0-70.0); PLATELET COUNT 311 TH/MM3 (150-450); RED BLOOD COUNT 4.24 MIL/MM3 (4.00-5.30); RED CELL DISTRIBUTION WIDTH 14.6 % (11.6-17.2)
[2017-08-16 09:02] LABS: ALBUMIN 3.8 GM/DL (3.4-5.0); ALT (GPT) 24 U/L (10-53); AST (GOT) 18 U/L (15-37); BICARBONATE 27.6 MEQ/L (21.0-32.0); BLOOD UREA NITROGEN 9 MG/DL (7-18); CALCIUM 8.7 MG/DL (8.5-10.1); CHLORIDE 104 MEQ/L (98-107); GLOMERULAR FILTRATION RATE 89 ML/MIN (>89); GLUCOSE,RANDOM 91 MG/DL (74-106); SODIUM (NA) 138 MEQ/L (136-145)
[2017-08-16 09:05] LABS: ALKALINE PHOSPHATASE 77 U/L (45-117); TOTAL BILIRUBIN ADULT 1.8 MG/DL (0.2-1.0)
--- NOTE | 2017-08-17 09:42 | EKG ---
Date Performed: 08/16/2017 Time Performed: 08:04:47 PTAGE: 32 years EKG: Sinus rhythm NORMAL ECG Since the prior tracing, there has been no significant change PREVIOUS TRACING : 07/31/2015 09.07 DOCTOR: Luis Angel Michaels Interpretating Date/Time 08/17/2017 09:38:41
== END 2017-08-16 11:01 | disposition home or self-care (01) ==
LOC: NEPC 07:53
DX: R68.89 Other general symptoms and signs (principal); J45.909 Unspecified asthma, uncomplicated; Z79.82 Long term (current) use of aspirin; Z88.2 Allergy status to sulfonamides
CPT/HCPCS: 80053; 81001; 84703; 85025; 93005; 99284